=== PATIENT | female | born 1945 | race Caucasian/White ===

== ENCOUNTER 2016-10-03 10:16 | Day surgery (SDC) | payer BC ==
--- NOTE | 2016-09-25 12:20 | HP ---
Admitting History and Physical - Primary Care Physician PCP: Selena Alfaro - Admission Chief Complaint: right nipple discharge History of Present Illness: Patient is a 72 yo female who presents with complaint of right spontaneous nipple discharge times one month. Right US was c/w right breast cyst versus focal ductal dilation. Mammogram was otherwise negative. Patient is now presenting for MDE. History Source: Patient Limitations to Obtaining History: No Limitations - Past Medical History Cardiovascular: Yes: HTN Gastrointestinal: Yes: GERD Musculoskeletal: Yes: Chronic low back pain, Other (sciatica) - Smoking History Smoking history: Current every day smoker Have you smoked in the past 12 months: Yes Aproximately how many cigarettes per day: 20 - Alcohol/Substance Use Hx Alcohol Use: No Home Medications - Allergies Allergies/Adverse Reactions: Allergies Allergy/AdvReac Type Severity Reaction Status Date / Time ibuprofen [From Advil] Allergy Severe ANAPHILACTIC Verified 05/28/13 09:25 SHOCK - Home Medications Home Medications: Ambulatory Orders Albuterol Sulfate Inhaler - [Ventolin HFA Inhaler -] 2 inh IH Q6H PRN #0 inh Amlodipine Besylate [Norvasc -] 10 mg PO DAILY #0 tablet 11/26/12 Enalapril Maleate [Vasotec -] 10 mg PO DAILY #0 tablet 11/26/12 Gabapentin [Neurontin -] 300 mg PO TID #0 capsule 11/26/12 Hydrochlorothiazide [Hctz -] 25 mg PO DAILY #0 tablet 11/26/12 Tramadol HCl [Ultram -] 50 mg PO Q6H PRN #0 tablet 11/26/12 Aspirin Coated [Ecotrin -] 81 mg PO DAILY 05/28/13 Calcium Carbonate/Vitamin D3 [Calcium 600-Vit D3 200 Tablet] 1 each PO DAILY Omeprazole [Prilosec (RX)] 20 mg PO DAILY 05/28/13 Tizanidine HCl [Zanaflex] 4 mg PO DAILY 05/28/13 Vit E/Vit E Mix/Tocotr/Hc122 [Advanced High Gamma E Softgel] 600 units PO DAILY 05/28/13 Family Disease History - Family Disease History Family Disease History: CA: Mother (ovarian cancer ) Review of Systems - Review of Systems Constitutional: reports: No Symptoms Cardiovascular: reports: No Symptoms Respiratory: reports: No Symptoms Breasts: reports: See HPI Physical Examination Constitutional: Yes: Well Nourished Breast(s): Yes: Right (Right clear nipple discharge noted. Left without discharge noted. No other palpable masses or adenopathy noted bilaterally.) Problem List - Problems (1) Discharge from right nipple Assessment/Plan: Right breast MDE Code(s): N64.52 - NIPPLE DISCHARGE
[2016-09-30 16:55] VITALS: BMI 33.0
[2016-10-03] MEDS ORDERED: MIDAZOLAM HCL 2 MG/2 ML SINGLE DOSE VIAL ONE (12:27)
[2016-10-03] MEDS ORDERED: LIDOCAINE HCL 1%, 10 MG/ML (20ML VIAL) ONE (12:43)
[2016-10-03] MEDS ORDERED: LIDOCAINE HCL 1%, 10 MG/ML (20ML VIAL) IJ ONE (12:52)
[2016-10-03] MEDS ORDERED: BUPIVACAINE HCL/PF 0.5% (5MG/ML) 10 ML VIAL ONE (13:12)
[2016-10-03] MEDS ORDERED: BUPIVACAINE HCL/PF 0.5% (5MG/ML) 10 ML VIAL IJ ONE (13:13)
[2016-10-03] MEDS ORDERED: ONDANSETRON 4 MG/2 ML VIAL IVPB PRN (14:02)
[2016-10-03] MEDS ORDERED: oxyCODONE HCL 5 MG TABLET PO ONE (14:12)
[2016-10-03] MEDS ORDERED: DEXTROSE 5%-0.45% SALINE 1,000 ML IV SCH (14:15)
[2016-10-03 15:41] VITALS: BP 125/57; PULSE 92; TEMP 98.9
--- NOTE | 2016-10-08 15:39 | PATH ---
Surgical Pathology Report Patient Name: CHARLES HAYES [facility]. Rec. #: [id number] /Age/Gender: 1945 (Age: 71) / F Account: [id number] Location: [facility] Taken: 10/03/2016 Received: 10/03/2016 Reported: 10/08/2016 Physicians: Selena Alfaro M.D. Specimen(s) Received RIGHT BREAST MAJOR DUCT Clinical History Right breast major duct excision Final Diagnosis BREAST, RIGHT, MAJOR DUCT, EXCISION: BENIGN BREAST TISSUE SHOWING INTRADUCTAL PAPILLOMA WITH EPITHELIAL HYPERPLASIA, APOCRINE METAPLASIA, SCLEROSIS AND ASSOCIATED CALCIFICATIONS. Electronically Signed India Grey M.D. Gross Description Received in formalin, labeled "right breast major duct," is a 4.5 x 3.7 x 1.7 cm. berry-yellow, irregular, portion of fibroadipose tissue. There is a short suture marking the superior aspect and a long suture marking the lateral aspect, per the surgeon. There is no skin present. The specimen is inked as follows: superior and lateral blue; inferior green; medial yellow; anterior red; deep black. The specimen is serially sectioned from lateral to medial. Sectioning reveals foci of white fibrous tissue. No definitive masses are identified. The specimen is entirely and sequentially submitted in 9 cassettes with the medial margin in cassette 1 and the lateral margin in cassette 9. Time to formalin fixation: 2 minutes Total formalin fixation time: Approximately 29 hours. 10/04/2016 [facility]10/04/2016
--- NOTE | 2016-10-19 13:06 | OP ---
DATE OF OPERATION: 10/03/2016 DATE OF DICTATION: 10/18/2016 PREOPERATIVE DIAGNOSIS: Nipple discharge. POSTOPERATIVE DIAGNOSIS: Nipple discharge. PROCEDURE: Right major duct excision. SURGEON: Serg Alfaro MD ANESTHESIA: General. ANESTHESIOLOGIST: . SPECIMEN: Right breast tissue INDICATION FOR PROCEDURE: The patient is a 71-year-old woman with spontaneous right nipple discharge. Diagnostic workup was negative, but the discharge persisted and she was recommended major duct excision. The procedure, risks, and complications were discussed with her prior to surgery. PROCEDURE: The patient was identified in the holding area. An informed consent was obtained. The right breast was identified with a marker. She was taken to the operating room and placed on the operating table in the supine position. General anesthesia was initiated. The right breast was prepped and draped in the usual fashion. A timeout was performed. An incision was made at the areolar border using a scalpel. The incision was deepened using electrocautery. Electrocautery was used to separate the areola and the nipple from the underlying breast tissue. Care was taken not to damage the overlying skin. Electrocautery was used to remove a disk of tissue underneath the areola for a depth of about 1 cm. The specimen was removed and labeled with silk sutures. The specimen was placed in formalin and sent to Pathology. The wound was irrigated and hemostasis was ensured. The skin was infiltrated with 0.5% Marcaine. The deep tissue was closed with interrupted sutures of 3-0 Vicryl. The dermis was closed with interrupted sutures of 3-0 Vicryl. The skin was closed with a running subcuticular closure of 4-0 Monocryl. The wound was cleaned and a sterile dressing was applied. The patient tolerated the procedure well. All sponge, lap, and instrument counts were correct at the end of the procedure. She was taken to the recovery area in satisfactory condition. SERG ALFARO M.D. [id number] MTDD
== END 2016-10-03 15:00 | disposition home or self-care (01) ==
LOC: FASU 10:16
PROVIDERS: ATTEND Surgery
PROC: 0HBT0ZX Excision of Right Breast, Open Approach, Diagnostic (ICD-10-PCS; principal; 2016-10-03 12:54)
DX: N64.52 Nipple discharge (principal); D24.1 Benign neoplasm of right breast; N64.89 Other specified disorders of breast; I10 Essential (primary) hypertension; K21.9 Gastro-esophageal reflux disease without esophagitis; M54.40 Lumbago with sciatica, unspecified side; G89.29 Other chronic pain
CPT/HCPCS: 88307-TC

== ENCOUNTER 2019-01-03 12:16 | Emergency (ER) | payer BC ==
[2019-01-03 12:30] VITALS: BP 106/56; PULSE 84; TEMP 98.3; BMI 30.6
--- NOTE | 2019-01-03 13:32 | PDOC ---
History of Present Illness - General Chief Complaint: Pain Stated Complaint: NECK PAIN Time Seen by Provider: 01/03/19 12:44 History Source: Patient - History of Present Illness Timing/Duration: 1 week Past History - Past Medical History Allergies/Adverse Reactions: Allergies Allergy/AdvReac Type Severity Reaction Status Date / Time ibuprofen [From Advil] Allergy Severe ANAPHYLACTIC Verified 01/03/19 12:30 SHOCK Home Medications: Ambulatory Orders Albuterol Sulfate Inhaler - [Ventolin HFA Inhaler -] 2 inh IH Q6H PRN #0 inh Amlodipine Besylate [Norvasc -] 10 mg PO DAILY #0 tablet 11/26/12 Hydrochlorothiazide [Hctz -] 25 mg PO DAILY #0 tablet 11/26/12 Calcium Carbonate/Vitamin D3 [Calcium 600-Vit D3 200 Tablet] 1 each PO DAILY traMADol HCL [Ultram -] 50 mg PO DAILY PRN 09/30/16 Aspirin [ASA -] 81 mg PO HS 12/24/18 Atorvastatin Ca [Lipitor] 20 mg PO HS 12/24/18 Bupropion HCl [Bupropion HCl Sr] 150 mg PO DAILY 12/24/18 Enalapril Maleate [Vasotec -] 10 mg PO HS 12/24/18 Gabapentin [Neurontin -] 100 mg PO DAILY 12/24/18 Cyclobenzaprine HCl [Flexeril -] 10 mg PO TID #9 tablet 01/03/19 Anemia: No Asthma: No Cancer: No Cardiac Disorders: No CVA: No COPD: Yes CHF: No Dementia: No Diabetes: No GI Disorders: Yes (HX Acid Reflux) Disorders: No HTN: Yes Hypercholesterolemia: No Liver Disease: No Seizures: No Thyroid Disease: No Other medical history: chronic back pain - Surgical History Abdominal Surgery: Yes Appendectomy: Yes Cardiac Surgery: No Cholecystectomy: No Lung Surgery: No Neurologic Surgery: No Orthopedic Surgery: Yes (REMOVAL BENIGN NODULE FROM LT HAND) - Suicide/Smoking/Psychosocial Hx Smoking Status: Yes Smoking History: Never smoked Have you smoked in the past 12 months: Yes Number of Cigarettes Smoked Daily: 20 If you are a former smoker, when did you quit?: 7 MONTHS AGO 'Breaking Loose' booklet given: 12/25/18 Hx Alcohol Use: No Drug/Substance Use Hx: No Substance Use Type: None Hx Substance Use Treatment: No Review of Systems - Review of Systems Constitutional: No: Chills, Fever Musculoskeletal: Yes: Neck Pain. No: Back Pain Neurological: No: Headache, Numbness, Tingling, Weakness *Physical Exam - Vital Signs Last Vital Signs Temp Pulse Resp BP Pulse Ox 98.3 F 84 18 106/56 L 99 01/03/19 12:24 01/03/19 12:24 01/03/19 12:24 01/03/19 12:24 01/03/19 12:24 - Physical Exam General Appearance: Yes: Appropriately Dressed. No: Apparent Distress HEENT: positive: Normal Voice Neck: positive: Supple. negative: Tender, Rigid, Decreased range of motion, Lymphadenopathy (R), Lymphadenopathy (L) Integumentary: positive: Dry, Warm Neurologic: positive: Fully Oriented, Alert, Normal Mood/Affect, Motor Strength 5/5 Medical Decision Making - Medical Decision Making 01/03/19 13:23 73 yo F, h/o chronic lower back pain, s/p recent stimulation trial, here w/ L sided neck pain that pt awoke w/ 1 week ago, worse w/ ROM. Taking tramadol w/ some relief. No JORADN, dizziness, visual changes, focal weakness or sensory changes see exam M/l MSK neck pain No red flags at this time Dc w/ pain control and PMD f/u *DC/Admit/Observation/Transfer Diagnosis at time of Disposition: Neck pain - Discharge Dispostion Disposition: HOME Condition at time of disposition: Good - Prescriptions Prescriptions: Cyclobenzaprine HCl [Flexeril -] 10 mg PO TID #9 tablet - Referrals - Patient Instructions Printed Discharge Instructions: DI for Neck Pain Additional Instructions: Take medication as directed and follow up with your PMD if pain persists - Post Discharge Activity
== END 2019-01-03 13:23 | disposition home or self-care (01) ==
LOC: JERFT 12:16
DX: M54.2 Cervicalgia (principal); M54.5 Low back pain; G89.29 Other chronic pain; I10 Essential (primary) hypertension; J44.9 Chronic obstructive pulmonary disease, unspecified
CPT/HCPCS: 99282-25

== ENCOUNTER 2021-05-22 05:32 | Day surgery (SDC) | payer BC ==
[2021-05-22 10:55] VITALS: TEMP 97.5; BMI 28.5
[2021-05-22 12:47] VITALS: BP 115/41; PULSE 79
== END 2021-05-22 12:43 | disposition home or self-care (01) ==
LOC: JASU-ENDO 05:32
PROVIDERS: ATTEND Internal Medicine Gastroenterology
PROC: 0DB68ZX Excision of Stomach, Via Natural or Artificial Opening Endoscopic, Diagnostic (ICD-10-PCS; 2021-05-22)
PROC: 0DB38ZX Excision of Lower Esophagus, Via Natural or Artificial Opening Endoscopic, Diagnostic (ICD-10-PCS; principal; 2021-05-22 10:45)
DX: K29.50 Unspecified chronic gastritis without bleeding (principal); K29.80 Duodenitis without bleeding; K44.9 Diaphragmatic hernia without obstruction or gangrene; K25.9 Gastric ulcer, unspecified as acute or chronic, without hemorrhage or perforation; K31.9 Disease of stomach and duodenum, unspecified; R10.9 Unspecified abdominal pain; R93.3 Abnormal findings on diagnostic imaging of other parts of digestive tract; R63.4 Abnormal weight loss
CPT/HCPCS: 88305-TC; 88342-TC

== ENCOUNTER 2021-05-24 05:04 | Day surgery (SDC) | payer BC ==
[2021-05-22 13:12] VITALS: BMI 28.5
[2021-05-24 11:12] VITALS: BP 118/59; PULSE 69
[2021-05-24 13:00] VITALS: TEMP 97.1
== END 2021-05-24 10:55 | disposition home or self-care (01) ==
LOC: JASU-ENDO 05:04
PROVIDERS: ATTEND Internal Medicine Gastroenterology
PROC: 0DJD8ZZ Inspection of Lower Intestinal Tract, Via Natural or Artificial Opening Endoscopic (ICD-10-PCS; principal; 2021-05-24 08:45)
DX: R19.5 Other fecal abnormalities (principal); K64.8 Other hemorrhoids; K62.89 Other specified diseases of anus and rectum

== ENCOUNTER 2021-05-31 23:01 | Emergency (ER) | payer BC ==
[2021-05-31 23:15] VITALS: BMI 31.3
[2021-06-01] MEDS ORDERED: ACETAMINOPHEN 1000 MG/100 ML VIAL IVPB ONE (00:11)
[2021-06-01 00:16] LABS: BASO % 0.7 % (0-2.0); EOS % 2.1 % (0-4.5); HEMATOCRIT 34.8 % (32.4-45.2); HEMOGLOBIN 11.9 GM/dL (10.7-15.3); MCH 33.2 pg (25.7-33.7); MCHC 34.1 g/dl (32.0-36.0); MEAN CELL VOLUME 97.3 fl (80-96); MEAN PLT VOLUME 7.4 fl (7.5-11.1); MONO % 9.6 % (3.8-10.2); NEUT % 71.6 % (42.8-82.8); PLATELET COUNT 314 10^3/uL (134-434); RBC 3.58 M/mm3 (3.60-5.2); RDW 13.3 % (11.6-15.6); WHITE BLOOD COUNT 8.7 K/mm3 (4.0-10.0)
[2021-06-01] MEDS ORDERED: ACETAMINOPHEN INJECTION 100 ML IVPB ONE (00:20)
[2021-06-01 00:23] LABS: INR 1.03 (0.83-1.09)
[2021-06-01 00:26] LABS: ACTIVATED PTT 27.6 SECONDS (25.2-36.5)
[2021-06-01 00:34] LABS: CHLORIDE 106 mmol/L (98-107); SODIUM 135 mmol/L (136-145)
[2021-06-01 00:38] LABS: CALCIUM 9.1 mg/dL (8.5-10.1)
[2021-06-01 00:39] LABS: ALBUMIN 3.2 g/dl (3.4-5.0); ANION GAP 8 MMOL/L (8-16); BLOOD UREA NITROGEN 18.7 mg/dL (7-18); CO2 22 mmol/L (21-32); GLUCOSE,RANDOM 90 mg/dL (74-106)
[2021-06-01 00:42] LABS: SGOT/AST 12 U/L (15-37); SGPT/ALT 16 U/L (13-61)
[2021-06-01 00:43] LABS: BILIRUBIN,TOTAL 0.3 mg/dL (0.2-1); LDH 160 U/L (84-246)
[2021-06-01 00:44] LABS: TOT PROT 6.8 g/dl (6.4-8.2)
[2021-06-01 00:45] LABS: ALK PHOS 109 U/L (45-117)
[2021-06-01 05:06] VITALS: BP 113/54; PULSE 76; TEMP 98.1
== END 2021-06-01 05:06 | disposition home or self-care (01) ==
LOC: JER 23:01
PROC: 3E033GC Introduction of Other Therapeutic Substance into Peripheral Vein, Percutaneous Approach (ICD-10-PCS; principal; 2021-05-31)
DX: R06.09 Other forms of dyspnea (principal)
CPT/HCPCS: 36415; 71046-TC-FY; 80053; 82550; 82728; 83615; 84484; 85025; 85610; 85730; 86140; 87804; 87807; 93005; 93010; 99285-25; C9803; J0131; U0003; U0005

== ENCOUNTER 2021-08-02 04:52 | Day surgery (SDC) | payer BC ==
[2021-07-30 15:59] VITALS: BMI 31.5
[2021-08-02 08:36] VITALS: TEMP 97.7
[2021-08-02 10:06] VITALS: BP 122/49; PULSE 63
== END 2021-08-02 09:30 | disposition home or self-care (01) ==
LOC: JASU-ENDO 04:52
PROVIDERS: ATTEND Internal Medicine Gastroenterology
PROC: 0DB68ZX Excision of Stomach, Via Natural or Artificial Opening Endoscopic, Diagnostic (ICD-10-PCS; 2021-08-02)
PROC: 0DB48ZX Excision of Esophagogastric Junction, Via Natural or Artificial Opening Endoscopic, Diagnostic (ICD-10-PCS; principal; 2021-08-02 09:00)
DX: K29.50 Unspecified chronic gastritis without bleeding (principal); K44.9 Diaphragmatic hernia without obstruction or gangrene; K21.00 Gastro-esophageal reflux disease with esophagitis, without bleeding
CPT/HCPCS: 88305-TC; 88342-TC

== ENCOUNTER 2022-08-05 12:48 | Inpatient (IN) | payer BC ==
[2022-08-05 13:04] VITALS: BMI 31.3
[2022-08-05] MEDS ORDERED: methylPREDNISolone NA SUCC 125 MG/2 ML VIAL IVPB ONE ×2 (13:23→13:27)
[2022-08-05 13:38] LABS: VENOUS BASE EXCESS 0.2 mmol/L (-2-2); VENOUS O2 SATURATION 77.6 % (70-80); VENOUS PH 7.336 (7.310-7.410)
[2022-08-05 13:40] LABS: BASO % 0.3 % (0-2.0); EOS % 0.8 % (0-4.5); HEMOGLOBIN 12.2 GM/dL (10.7-15.3); LYMPH % 7.1 % (8-40); MCH 31.9 pg (25.7-33.7); MCHC 33.8 g/dl (32.0-36.0); MEAN CELL VOLUME 94.3 fl (80-96); MEAN PLT VOLUME 7.7 fl (7.5-11.1); MONO % 7.9 % (3.8-10.2); NEUT % 83.9 % (42.8-82.8); PLATELET COUNT 306 10^3/uL (134-434); RBC 3.82 M/mm3 (3.60-5.2); WHITE BLOOD COUNT 7.9 K/mm3 (4.0-10.0)
[2022-08-05] MEDS ORDERED: methylPREDNISolone NA SUCC 125 MG/2 ML VIAL ONE (13:42)
[2022-08-05] MEDS ORDERED: ALBUTEROL SO4 2.5/IPRATROPIUM 0.5 INH SOL 3 ML VIAL.NEB. NEB SCH ×3 (13:46→16:00)
[2022-08-05 14:03] LABS: CALCIUM 9.7 mg/dL (8.5-10.1)
[2022-08-05 14:04] LABS: ALBUMIN 4.3 g/dl (3.4-5.0); BLOOD UREA NITROGEN 23.9 mg/dL (7-18)
[2022-08-05 14:07] LABS: CREATININE 1.1 mg/dL (0.55-1.3)
[2022-08-05 14:08] LABS: BILIRUBIN,TOTAL 0.4 mg/dL (0.2-1); TOT PROT 7.3 g/dl (6.4-8.2)
[2022-08-05] MEDS ORDERED: ALBUTEROL SO4 2.5/IPRATROPIUM 0.5 INH SOL 3 ML VIAL.NEB. NEB ONE ×3 (14:09→19:59)
[2022-08-05] MEDS ORDERED: LACTATED RINGERS SOLUTION 1000 ML INFUS.BAG IV ONE (14:24)
[2022-08-05] MEDS ORDERED: CEFTRIAXONE 1,000 MG in DEXTROSE 5%-WATER - 50 ML IVPB ONE (15:52)
[2022-08-05] MEDS ORDERED: AZITHROMYCIN IVPB 500 MG in DEXTROSE 5%-WATER - 250 ML IVPB ONE (15:52)
[2022-08-05] MEDS ORDERED: CEFTRIAXONE 1 GM/50 ML BAG ONE (16:17)
[2022-08-05] MEDS ORDERED: AZITHROMYCIN IVPB 500 MG/250 ML BAG IVPB ONE (16:17)
[2022-08-05] MEDS: ALBUTEROL SO4 2.5/IPRATROPIUM 0.5 INH SOL 3 ML VIAL.NEB. NEB PRN (19:45)
[2022-08-05] MEDS ORDERED: ACETAMINOPHEN 325 MG TABLET (FP) ONE (20:19)
[2022-08-05] MEDS: methylPREDNISolone NA SUCC 40 MG/1 ML VIAL IVPUSH SCH (21:00)
[2022-08-05] MEDS ORDERED: ALBUTEROL SO4 0.083% IH SOL 2.5 MG/3 ML VIAL.NEB. NEB PRN (21:30)
[2022-08-05] MEDS: ASPIRIN 81 MG CHEWABLE TABLETS PO SCH (21:39)
[2022-08-05] MEDS: ATORVASTATIN CA 10 MG TABLET (FP) PO SCH ×2 (21:39→21:47)
[2022-08-05] MEDS: BACLOFEN 10 MG TABLET (FP) PO SCH ×2 (21:39→21:47)
[2022-08-05] MEDS: GABAPENTIN 100 MG CAPSULE PO SCH ×2 (21:39→21:47)
[2022-08-05] MEDS: HEPARIN NA (PORCINE) 5,000 UNITS/ML 1ML VIAL SQ SCH (21:39)
[2022-08-05] MEDS ORDERED: ALBUTEROL SO4 HFA INHALER IH PRN (22:00)
[2022-08-06] MEDS: methylPREDNISolone NA SUCC 40 MG/1 ML VIAL IVPUSH SCH ×4 (02:09→21:15)
[2022-08-06] MEDS: ACETAMINOPHEN 325 MG TABLET (FP) PO PRN ×2 (03:00→14:22)
[2022-08-06] MEDS: GABAPENTIN 100 MG CAPSULE PO SCH ×3 (05:30→21:14)
[2022-08-06] MEDS: ENALAPRIL MALEATE 10 MG TABLET PO SCH (10:11)
[2022-08-06] MEDS: FAMOTIDINE 20 MG TABLET PO SCH (10:11)
[2022-08-06] MEDS: FLUTICASONE/UMECLIDIN/VILANTER(100-62.5-25 TRELEGY ELLIPTA) INAHLER IH SCH (10:11)
[2022-08-06] MEDS: amLODIPine BESYLATE 10 MG TABLET (FP) PO SCH (10:11)
[2022-08-06] MEDS: BACLOFEN 10 MG TABLET (FP) PO SCH ×2 (10:11→21:14)
[2022-08-06] MEDS: HEPARIN NA (PORCINE) 5,000 UNITS/ML 1ML VIAL SQ SCH ×2 (10:11→21:14)
[2022-08-06] MEDS ORDERED: CEFTRIAXONE 1,000 MG in DEXTROSE 5%-WATER - 50 ML IVPB SCH (11:30)
[2022-08-06] MEDS ORDERED: ALBUTEROL SO4 2.5/IPRATROPIUM 0.5 INH SOL 3 ML VIAL.NEB. NEB SCH (11:30)
[2022-08-06] MEDS ORDERED: PANTOPRAZOLE SODIUM 40 MG VIAL IVPUSH SCH (11:30)
[2022-08-06] MEDS: CEFTRIAXONE 1 GM in DEXTROSE 5%-WATER 100 ML IVPB SCH (12:05)
[2022-08-06] MEDS: AZITHROMYCIN IVPB 500 MG/250 ML BAG IVPB SCH (12:06)
[2022-08-06] MEDS: ALBUTEROL SO4 2.5/IPRATROPIUM 0.5 INH SOL 3 ML VIAL.NEB. NEB PRN (12:50)
[2022-08-06] MEDS: ALBUTEROL SO4 2.5/IPRATROPIUM 0.5 INH SOL 3 ML VIAL.NEB. NEB SCH ×2 (15:25→20:05)
[2022-08-06] MEDS: ASPIRIN 81 MG CHEWABLE TABLETS PO SCH (21:14)
[2022-08-06] MEDS: ATORVASTATIN CA 10 MG TABLET (FP) PO SCH (21:14)
[2022-08-07] MEDS: methylPREDNISolone NA SUCC 40 MG/1 ML VIAL IVPUSH SCH ×4 (02:06→21:26)
[2022-08-07] MEDS: PANTOPRAZOLE SODIUM 40 MG VIAL IVPUSH SCH (06:08)
[2022-08-07] MEDS: GABAPENTIN 100 MG CAPSULE PO SCH ×3 (06:08→21:25)
[2022-08-07] MEDS: ALBUTEROL SO4 2.5/IPRATROPIUM 0.5 INH SOL 3 ML VIAL.NEB. NEB SCH ×4 (08:30→21:23)
[2022-08-07] MEDS: HEPARIN NA (PORCINE) 5,000 UNITS/ML 1ML VIAL SQ SCH ×2 (09:42→21:26)
[2022-08-07] MEDS: FAMOTIDINE 20 MG TABLET PO SCH (09:42)
[2022-08-07] MEDS: BACLOFEN 10 MG TABLET (FP) PO SCH ×2 (09:42→21:26)
[2022-08-07] MEDS: ENALAPRIL MALEATE 10 MG TABLET PO SCH (09:42)
[2022-08-07] MEDS: amLODIPine BESYLATE 10 MG TABLET (FP) PO SCH (09:42)
[2022-08-07] MEDS: FLUTICASONE/UMECLIDIN/VILANTER(100-62.5-25 TRELEGY ELLIPTA) INAHLER IH SCH (09:42)
[2022-08-07] MEDS: CEFTRIAXONE 1 GM in DEXTROSE 5%-WATER 100 ML IVPB SCH (09:42)
[2022-08-07 09:45] LABS: HEMOGLOBIN 11.4 GM/dL (10.7-15.3); MCHC 34.5 g/dl (32.0-36.0); MEAN CELL VOLUME 95.5 fl (80-96); MEAN PLT VOLUME 7.6 fl (7.5-11.1); PLATELET COUNT 277 10^3/uL (134-434); RBC 3.46 M/mm3 (3.60-5.2); RDW 14.1 % (11.6-15.6); WHITE BLOOD COUNT 14.4 K/mm3 (4.0-10.0)
[2022-08-07 10:02] LABS: CALCIUM 9.8 mg/dL (8.5-10.1)
[2022-08-07 10:03] LABS: BLOOD UREA NITROGEN 24.1 mg/dL (7-18)
[2022-08-07 10:06] LABS: CREATININE 0.9 mg/dL (0.55-1.3)
[2022-08-07] MEDS: AZITHROMYCIN IVPB 500 MG/250 ML BAG IVPB SCH (10:56)
[2022-08-07 11:14] LABS: ANISOCYTOSIS 0; MACROCYTOSIS 0
[2022-08-07] MEDS: ASPIRIN 81 MG CHEWABLE TABLETS PO SCH (21:25)
[2022-08-07] MEDS: ATORVASTATIN CA 10 MG TABLET (FP) PO SCH (21:26)
[2022-08-08] MEDS: methylPREDNISolone NA SUCC 40 MG/1 ML VIAL IVPUSH SCH ×3 (03:04→18:08)
[2022-08-08] MEDS: GABAPENTIN 100 MG CAPSULE PO SCH ×3 (05:32→22:41)
[2022-08-08] MEDS: PANTOPRAZOLE SODIUM 40 MG VIAL IVPUSH SCH (05:32)
[2022-08-08] MEDS: ALBUTEROL SO4 2.5/IPRATROPIUM 0.5 INH SOL 3 ML VIAL.NEB. NEB SCH ×4 (07:59→23:23)
[2022-08-08] MEDS: CEFTRIAXONE 1 GM in DEXTROSE 5%-WATER 100 ML IVPB SCH (09:08)
[2022-08-08] MEDS: amLODIPine BESYLATE 10 MG TABLET (FP) PO SCH (09:10)
[2022-08-08] MEDS: ENALAPRIL MALEATE 10 MG TABLET PO SCH (09:10)
[2022-08-08] MEDS: FAMOTIDINE 20 MG TABLET PO SCH (09:10)
[2022-08-08] MEDS: BACLOFEN 10 MG TABLET (FP) PO SCH ×2 (09:10→22:41)
[2022-08-08] MEDS: AZITHROMYCIN IVPB 500 MG/250 ML BAG IVPB SCH (09:11)
[2022-08-08] MEDS: HEPARIN NA (PORCINE) 5,000 UNITS/ML 1ML VIAL SQ SCH ×2 (09:11→22:41)
[2022-08-08] MEDS: FLUTICASONE/UMECLIDIN/VILANTER(200-62.5-25 TRELEGY ELLIPTA) INAHLER IH SCH (09:18)
[2022-08-08] MEDS: ASPIRIN 81 MG CHEWABLE TABLETS PO SCH (22:41)
[2022-08-08] MEDS: ATORVASTATIN CA 10 MG TABLET (FP) PO SCH (22:41)
[2022-08-09] MEDS: methylPREDNISolone NA SUCC 40 MG/1 ML VIAL IVPUSH SCH ×3 (01:17→17:26)
[2022-08-09] MEDS: PANTOPRAZOLE SODIUM 40 MG VIAL IVPUSH SCH (05:27)
[2022-08-09] MEDS: GABAPENTIN 100 MG CAPSULE PO SCH ×3 (05:27→21:46)
[2022-08-09] MEDS: ALBUTEROL SO4 2.5/IPRATROPIUM 0.5 INH SOL 3 ML VIAL.NEB. NEB SCH ×4 (07:40→20:20)
[2022-08-09] MEDS: CEFTRIAXONE 1 GM in DEXTROSE 5%-WATER 100 ML IVPB SCH (10:20)
[2022-08-09] MEDS: BACLOFEN 10 MG TABLET (FP) PO SCH ×2 (10:21→21:47)
[2022-08-09] MEDS: FAMOTIDINE 20 MG TABLET PO SCH (10:21)
[2022-08-09] MEDS: AZITHROMYCIN 250 MG TABLET PO SCH (10:21)
[2022-08-09] MEDS: amLODIPine BESYLATE 10 MG TABLET (FP) PO SCH (10:21)
[2022-08-09] MEDS: ENALAPRIL MALEATE 10 MG TABLET PO SCH (10:21)
[2022-08-09] MEDS: HEPARIN NA (PORCINE) 5,000 UNITS/ML 1ML VIAL SQ SCH ×2 (10:21→21:47)
[2022-08-09] MEDS: FLUTICASONE/UMECLIDIN/VILANTER(200-62.5-25 TRELEGY ELLIPTA) INAHLER IH SCH (10:22)
[2022-08-09] MEDS: ATORVASTATIN CA 10 MG TABLET (FP) PO SCH (21:46)
[2022-08-09] MEDS: ASPIRIN 81 MG CHEWABLE TABLETS PO SCH (21:46)
[2022-08-10] MEDS: methylPREDNISolone NA SUCC 40 MG/1 ML VIAL IVPUSH SCH ×4 (02:50→17:56)
[2022-08-10] MEDS: GABAPENTIN 100 MG CAPSULE PO SCH ×3 (05:31→23:03)
[2022-08-10] MEDS: PANTOPRAZOLE SODIUM 40 MG VIAL IVPUSH SCH (05:32)
[2022-08-10] MEDS: ALBUTEROL SO4 2.5/IPRATROPIUM 0.5 INH SOL 3 ML VIAL.NEB. NEB SCH ×4 (09:50→21:25)
[2022-08-10] MEDS: CEFTRIAXONE 1 GM in DEXTROSE 5%-WATER 100 ML IVPB SCH (10:24)
[2022-08-10] MEDS: ENALAPRIL MALEATE 10 MG TABLET PO SCH (10:25)
[2022-08-10] MEDS: FAMOTIDINE 20 MG TABLET PO SCH (10:25)
[2022-08-10] MEDS: FLUTICASONE/UMECLIDIN/VILANTER(200-62.5-25 TRELEGY ELLIPTA) INAHLER IH SCH (10:25)
[2022-08-10] MEDS: HEPARIN NA (PORCINE) 5,000 UNITS/ML 1ML VIAL SQ SCH ×2 (10:25→23:00)
[2022-08-10] MEDS: BACLOFEN 10 MG TABLET (FP) PO SCH ×2 (10:25→23:03)
[2022-08-10] MEDS: AZITHROMYCIN 250 MG TABLET PO SCH (10:25)
[2022-08-10] MEDS: amLODIPine BESYLATE 10 MG TABLET (FP) PO SCH (10:25)
[2022-08-10] MEDS: ACETAMINOPHEN 325 MG TABLET (FP) PO PRN (10:55)
[2022-08-10] MEDS: dilTIAZem HCL 25 MG/5 ML - 5 ML VIAL IVPUSH STA ×2 (21:30→23:00)
[2022-08-10] MEDS ORDERED: dilTIAZem HCL 25 MG/5 ML - 5 ML VIAL IVPUSH STA (22:01)
[2022-08-10] MEDS ORDERED: dilTIAZem HCL 50 MG/10 ML - 10 ML VIAL IVPUSH STA (22:15)
[2022-08-10] MEDS: ATORVASTATIN CA 10 MG TABLET (FP) PO SCH (22:52)
[2022-08-10] MEDS: ENOXAPARIN NA (PORCINE) 80 MG/0.8 ML DISP.SYRIN SQ SCH (23:03)
[2022-08-10] MEDS: ASPIRIN 81 MG CHEWABLE TABLETS PO SCH (23:03)
[2022-08-11 00:21] LABS: CALCIUM 9.2 mg/dL (8.5-10.1)
[2022-08-11 00:22] LABS: BLOOD UREA NITROGEN 26.5 mg/dL (7-18); MAGNESIUM 1.8 mg/dL (1.8-2.4)
[2022-08-11 00:25] LABS: CREATININE 0.8 mg/dL (0.55-1.3)
[2022-08-11] MEDS: methylPREDNISolone NA SUCC 40 MG/1 ML VIAL IVPUSH SCH ×3 (01:12→18:35)
[2022-08-11] MEDS: LEVALBUTEROL HCL 0.31 MG/3 ML VIAL.NEB IH PRN ×2 (03:23→13:56)
[2022-08-11] MEDS ORDERED: LORazepam 2 MG/ML SDV VIAL IVPUSH ONE (03:32)
[2022-08-11] MEDS: GABAPENTIN 100 MG CAPSULE PO SCH ×3 (05:59→22:14)
[2022-08-11] MEDS: PANTOPRAZOLE SODIUM 40 MG VIAL IVPUSH SCH (05:59)
[2022-08-11] MEDS: CEFTRIAXONE 1 GM in DEXTROSE 5%-WATER 100 ML IVPB SCH (09:54)
[2022-08-11] MEDS: ENOXAPARIN NA (PORCINE) 80 MG/0.8 ML DISP.SYRIN SQ SCH ×2 (09:56→22:15)
[2022-08-11] MEDS: AZITHROMYCIN 250 MG TABLET PO SCH (09:56)
[2022-08-11] MEDS: FAMOTIDINE 20 MG TABLET PO SCH (09:56)
[2022-08-11] MEDS: BACLOFEN 10 MG TABLET (FP) PO SCH ×2 (09:57→22:14)
[2022-08-11] MEDS: FLUTICASONE/UMECLIDIN/VILANTER(200-62.5-25 TRELEGY ELLIPTA) INAHLER IH SCH (11:00)
[2022-08-11] MEDS ORDERED: dilTIAZem HCL 60 MG TABLET PO ONE (16:15)
[2022-08-11] MEDS: dilTIAZem HCL 60 MG TABLET PO SCH ×2 (18:35→23:26)
[2022-08-11] MEDS: ATORVASTATIN CA 10 MG TABLET (FP) PO SCH (22:14)
[2022-08-11] MEDS: guaiFENesin 200 MG/10 ML 10 ML UNIT-DOSE CUPS PO PRN (22:16)
[2022-08-12] MEDS: methylPREDNISolone NA SUCC 40 MG/1 ML VIAL IVPUSH SCH ×3 (01:09→17:56)
[2022-08-12] MEDS: PANTOPRAZOLE SODIUM 40 MG VIAL IVPUSH SCH (05:42)
[2022-08-12] MEDS: dilTIAZem HCL 60 MG TABLET PO SCH ×4 (05:42→23:45)
[2022-08-12] MEDS: GABAPENTIN 100 MG CAPSULE PO SCH ×3 (05:42→21:33)
[2022-08-12] MEDS: ENOXAPARIN NA (PORCINE) 80 MG/0.8 ML DISP.SYRIN SQ SCH ×2 (09:55→21:34)
[2022-08-12] MEDS: CEFTRIAXONE 1 GM in DEXTROSE 5%-WATER 100 ML IVPB SCH (09:55)
[2022-08-12] MEDS: FAMOTIDINE 20 MG TABLET PO SCH (09:56)
[2022-08-12] MEDS: ACETAMINOPHEN 325 MG TABLET (FP) PO PRN (09:56)
[2022-08-12] MEDS: AZITHROMYCIN 250 MG TABLET PO SCH (09:57)
[2022-08-12] MEDS: BACLOFEN 10 MG TABLET (FP) PO SCH ×2 (09:57→21:33)
[2022-08-12] MEDS: FLUTICASONE/UMECLIDIN/VILANTER(200-62.5-25 TRELEGY ELLIPTA) INAHLER IH SCH (10:06)
[2022-08-12] MEDS: LEVALBUTEROL HCL 0.31 MG/3 ML VIAL.NEB IH PRN (15:51)
[2022-08-12] MEDS: guaiFENesin 200 MG/10 ML 10 ML UNIT-DOSE CUPS PO PRN (19:54)
[2022-08-12] MEDS: ATORVASTATIN CA 10 MG TABLET (FP) PO SCH (21:33)
[2022-08-13] MEDS: methylPREDNISolone NA SUCC 40 MG/1 ML VIAL IVPUSH SCH ×3 (01:18→17:08)
[2022-08-13] MEDS: GABAPENTIN 100 MG CAPSULE PO SCH ×3 (06:15→21:17)
[2022-08-13] MEDS: guaiFENesin 200 MG/10 ML 10 ML UNIT-DOSE CUPS PO PRN ×2 (06:15→21:17)
[2022-08-13] MEDS: dilTIAZem HCL 60 MG TABLET PO SCH (06:15)
[2022-08-13] MEDS: PANTOPRAZOLE SODIUM 40 MG VIAL IVPUSH SCH (06:16)
[2022-08-13] MEDS ORDERED: LISINOPRIL 5 MG TABLET PO ONE (10:00)
[2022-08-13] MEDS: BACLOFEN 10 MG TABLET (FP) PO SCH ×2 (10:24→21:17)
[2022-08-13] MEDS: AZITHROMYCIN 250 MG TABLET PO SCH (10:24)
[2022-08-13] MEDS: FAMOTIDINE 20 MG TABLET PO SCH (10:24)
[2022-08-13] MEDS: CEFTRIAXONE 1 GM in DEXTROSE 5%-WATER 100 ML IVPB SCH (10:24)
[2022-08-13] MEDS: APIXABAN 5 MG TABLET PO SCH ×2 (10:27→21:17)
[2022-08-13] MEDS: FLUTICASONE/UMECLIDIN/VILANTER(200-62.5-25 TRELEGY ELLIPTA) INAHLER IH SCH (10:28)
[2022-08-13] MEDS: ATORVASTATIN CA 10 MG TABLET (FP) PO SCH (21:17)
[2022-08-14] MEDS: methylPREDNISolone NA SUCC 40 MG/1 ML VIAL IVPUSH SCH ×3 (01:23→21:27)
[2022-08-14] MEDS: guaiFENesin 200 MG/10 ML 10 ML UNIT-DOSE CUPS PO PRN ×2 (02:30→21:27)
[2022-08-14] MEDS: LEVALBUTEROL HCL 0.31 MG/3 ML VIAL.NEB IH PRN ×2 (02:32→21:00)
[2022-08-14] MEDS: GABAPENTIN 100 MG CAPSULE PO SCH ×3 (06:01→21:24)
[2022-08-14] MEDS: PANTOPRAZOLE SODIUM 40 MG VIAL IVPUSH SCH (06:01)
[2022-08-14 08:13] LABS: HEMATOCRIT 40.9 % (32.4-45.2); HEMOGLOBIN 13.8 GM/dL (10.7-15.3); MCH 31.9 pg (25.7-33.7); MCHC 33.8 g/dl (32.0-36.0); MEAN CELL VOLUME 94.4 fl (80-96); MEAN PLT VOLUME 7.6 fl (7.5-11.1); PLATELET COUNT 339 10^3/uL (134-434); RBC 4.33 M/mm3 (3.60-5.2); WHITE BLOOD COUNT 13.3 K/mm3 (4.0-10.0)
[2022-08-14 08:28] LABS: ALBUMIN 3.4 g/dl (3.4-5.0); BLOOD UREA NITROGEN 31.2 mg/dL (7-18); CALCIUM 9.7 mg/dL (8.5-10.1)
[2022-08-14 08:32] LABS: CREATININE 0.7 mg/dL (0.55-1.3)
[2022-08-14 08:33] LABS: BILIRUBIN,TOTAL 0.6 mg/dL (0.2-1); TOT PROT 6.7 g/dl (6.4-8.2)
[2022-08-14] MEDS: FAMOTIDINE 20 MG TABLET PO SCH (09:02)
[2022-08-14] MEDS: BACLOFEN 10 MG TABLET (FP) PO SCH ×2 (09:02→21:24)
[2022-08-14] MEDS: AZITHROMYCIN 250 MG TABLET PO SCH (09:02)
[2022-08-14] MEDS: APIXABAN 5 MG TABLET PO SCH ×2 (09:02→21:24)
[2022-08-14] MEDS: FLUTICASONE/UMECLIDIN/VILANTER(200-62.5-25 TRELEGY ELLIPTA) INAHLER IH SCH (09:02)
[2022-08-14 09:24] LABS: ANISOCYTOSIS 0; HELMET CELLS 0; HOWELL-JOLLY BODIES 0; MACROCYTOSIS 0; OVALOCYTE 0; ROULEAU 0; SICKELED CELLS 0; TARGET CELLS 0; TEAR DROP CELLS 0; TOXIC GRANULATION 0
[2022-08-14] MEDS ORDERED: NICOTINE POLACRILEX 4 MG GUM BUC PRN (12:20)
[2022-08-14] MEDS: LIDOCAINE 5% TOPICAL PATCH TP SCH (14:44)
[2022-08-14] MEDS: CYANOCOBALAMIN 1,000 MCG TABLET (FP) PO SCH (14:44)
[2022-08-14] MEDS: CHOLECALCIFEROL (VIT D3) 5000 UNITS (125 MCG) CAP PO SCH (14:44)
[2022-08-14] MEDS: ATORVASTATIN CA 10 MG TABLET (FP) PO SCH (21:24)
[2022-08-14] MEDS: MELATONIN 5 MG TABLETS PO PRN (21:24)
[2022-08-14] MEDS: LIDOCAINE PATCH REMOVAL MC SCH (21:34)
[2022-08-15] MEDS: GABAPENTIN 100 MG CAPSULE PO SCH ×3 (05:56→21:32)
[2022-08-15] MEDS: PANTOPRAZOLE SODIUM 40 MG VIAL IVPUSH SCH (05:56)
[2022-08-15] MEDS: LEVALBUTEROL HCL 0.31 MG/3 ML VIAL.NEB IH PRN ×2 (08:06→14:23)
[2022-08-15] MEDS: AZITHROMYCIN 250 MG TABLET PO SCH (09:16)
[2022-08-15] MEDS: APIXABAN 5 MG TABLET PO SCH ×2 (09:16→21:32)
[2022-08-15] MEDS: CYANOCOBALAMIN 1,000 MCG TABLET (FP) PO SCH (09:16)
[2022-08-15] MEDS: FAMOTIDINE 20 MG TABLET PO SCH (09:16)
[2022-08-15] MEDS: LIDOCAINE 5% TOPICAL PATCH TP SCH (09:18)
[2022-08-15] MEDS: BACLOFEN 10 MG TABLET (FP) PO SCH ×2 (09:19→21:32)
[2022-08-15] MEDS: methylPREDNISolone NA SUCC 40 MG/1 ML VIAL IVPUSH SCH ×2 (09:19→21:33)
[2022-08-15] MEDS: FLUTICASONE/UMECLIDIN/VILANTER(200-62.5-25 TRELEGY ELLIPTA) INAHLER IH SCH (09:20)
[2022-08-15] MEDS: CHOLECALCIFEROL (VIT D3) 5000 UNITS (125 MCG) CAP PO SCH (09:34)
[2022-08-15] MEDS: guaiFENesin 200 MG/10 ML 10 ML UNIT-DOSE CUPS PO PRN (21:30)
[2022-08-15] MEDS: ATORVASTATIN CA 10 MG TABLET (FP) PO SCH (21:32)
[2022-08-15] MEDS: LIDOCAINE PATCH REMOVAL MC SCH (22:15)
[2022-08-16] MEDS: GABAPENTIN 100 MG CAPSULE PO SCH ×3 (05:16→22:17)
[2022-08-16] MEDS: PANTOPRAZOLE SODIUM 40 MG VIAL IVPUSH SCH (05:16)
[2022-08-16] MEDS: BACLOFEN 10 MG TABLET (FP) PO SCH ×2 (09:12→22:17)
[2022-08-16] MEDS: APIXABAN 5 MG TABLET PO SCH ×2 (09:12→22:17)
[2022-08-16] MEDS: CYANOCOBALAMIN 1,000 MCG TABLET (FP) PO SCH (09:12)
[2022-08-16] MEDS: methylPREDNISolone NA SUCC 40 MG/1 ML VIAL IVPUSH SCH ×2 (09:12→22:17)
[2022-08-16] MEDS: FAMOTIDINE 20 MG TABLET PO SCH (09:12)
[2022-08-16] MEDS: FLUTICASONE/UMECLIDIN/VILANTER(200-62.5-25 TRELEGY ELLIPTA) INAHLER IH SCH (09:13)
[2022-08-16] MEDS: CHOLECALCIFEROL (VIT D3) 5000 UNITS (125 MCG) CAP PO SCH (09:13)
[2022-08-16] MEDS: LIDOCAINE 5% TOPICAL PATCH TP SCH (09:14)
[2022-08-16] MEDS: FUROSEMIDE 20 MG TABLET (FP) PO SCH (18:23)
[2022-08-16] MEDS: ATORVASTATIN CA 10 MG TABLET (FP) PO SCH (22:17)
[2022-08-16] MEDS: LIDOCAINE PATCH REMOVAL MC SCH (22:18)
[2022-08-16] MEDS: MELATONIN 5 MG TABLETS PO PRN (22:18)
[2022-08-17] MEDS: GABAPENTIN 100 MG CAPSULE PO SCH ×3 (06:05→21:23)
[2022-08-17] MEDS: PANTOPRAZOLE SODIUM 40 MG VIAL IVPUSH SCH (06:05)
[2022-08-17] MEDS: FAMOTIDINE 20 MG TABLET PO SCH (09:22)
[2022-08-17] MEDS: APIXABAN 5 MG TABLET PO SCH ×2 (09:23→21:23)
[2022-08-17] MEDS: CYANOCOBALAMIN 1,000 MCG TABLET (FP) PO SCH (09:23)
[2022-08-17] MEDS: FUROSEMIDE 20 MG TABLET (FP) PO SCH (09:23)
[2022-08-17] MEDS: BACLOFEN 10 MG TABLET (FP) PO SCH ×2 (09:23→21:23)
[2022-08-17] MEDS: CHOLECALCIFEROL (VIT D3) 5000 UNITS (125 MCG) CAP PO SCH (09:24)
[2022-08-17] MEDS: LIDOCAINE 5% TOPICAL PATCH TP SCH (09:24)
[2022-08-17] MEDS: methylPREDNISolone NA SUCC 40 MG/1 ML VIAL IVPUSH SCH (09:25)
[2022-08-17] MEDS: FLUTICASONE/UMECLIDIN/VILANTER(200-62.5-25 TRELEGY ELLIPTA) INAHLER IH SCH (09:25)
[2022-08-17] MEDS: VALSARTAN 40 MG TABLET PO SCH (13:22)
[2022-08-17] MEDS: guaiFENesin 200 MG/10 ML 10 ML UNIT-DOSE CUPS PO PRN (21:23)
[2022-08-17] MEDS: LIDOCAINE PATCH REMOVAL MC SCH (21:23)
[2022-08-17] MEDS: ATORVASTATIN CA 10 MG TABLET (FP) PO SCH (21:23)
[2022-08-17] MEDS: MELATONIN 5 MG TABLETS PO PRN (21:23)
[2022-08-18] MEDS: GABAPENTIN 100 MG CAPSULE PO SCH ×3 (06:05→21:36)
[2022-08-18] MEDS: PANTOPRAZOLE SODIUM 40 MG VIAL IVPUSH SCH (06:05)
[2022-08-18] MEDS: LIDOCAINE 5% TOPICAL PATCH TP SCH (09:30)
[2022-08-18] MEDS: FAMOTIDINE 20 MG TABLET PO SCH (09:31)
[2022-08-18] MEDS: FUROSEMIDE 20 MG TABLET (FP) PO SCH (09:32)
[2022-08-18] MEDS: VALSARTAN 40 MG TABLET PO SCH (09:32)
[2022-08-18] MEDS: BACLOFEN 10 MG TABLET (FP) PO SCH ×2 (09:32→21:37)
[2022-08-18] MEDS: CYANOCOBALAMIN 1,000 MCG TABLET (FP) PO SCH (09:32)
[2022-08-18] MEDS: APIXABAN 5 MG TABLET PO SCH ×2 (09:32→21:36)
[2022-08-18] MEDS: methylPREDNISolone NA SUCC 40 MG/1 ML VIAL IVPUSH SCH (09:33)
[2022-08-18] MEDS: FLUTICASONE/UMECLIDIN/VILANTER(200-62.5-25 TRELEGY ELLIPTA) INAHLER IH SCH (09:35)
[2022-08-18] MEDS: CHOLECALCIFEROL (VIT D3) 5000 UNITS (125 MCG) CAP PO SCH (09:42)
[2022-08-18] MEDS: NEBIVOLOL 5 MG TABLET (FP) PO SCH (10:51)
[2022-08-18] MEDS: LIDOCAINE PATCH REMOVAL MC SCH (21:36)
[2022-08-18] MEDS: ATORVASTATIN CA 10 MG TABLET (FP) PO SCH (21:36)
[2022-08-18] MEDS: MELATONIN 5 MG TABLETS PO PRN (21:36)
[2022-08-18] MEDS: guaiFENesin 200 MG/10 ML 10 ML UNIT-DOSE CUPS PO PRN (22:55)
[2022-08-19] MEDS: PANTOPRAZOLE SODIUM 40 MG VIAL IVPUSH SCH (06:18)
[2022-08-19] MEDS: GABAPENTIN 100 MG CAPSULE PO SCH ×3 (06:18→22:14)
[2022-08-19] MEDS: methylPREDNISolone NA SUCC 40 MG/1 ML VIAL IVPUSH SCH (10:12)
[2022-08-19] MEDS: LIDOCAINE 5% TOPICAL PATCH TP SCH (10:12)
[2022-08-19] MEDS: FAMOTIDINE 20 MG TABLET PO SCH (10:13)
[2022-08-19] MEDS: NEBIVOLOL 5 MG TABLET (FP) PO SCH (10:13)
[2022-08-19] MEDS: BACLOFEN 10 MG TABLET (FP) PO SCH ×2 (10:14→22:14)
[2022-08-19] MEDS: VALSARTAN 40 MG TABLET PO SCH (10:14)
[2022-08-19] MEDS: FUROSEMIDE 20 MG TABLET (FP) PO SCH (10:14)
[2022-08-19] MEDS: CYANOCOBALAMIN 1,000 MCG TABLET (FP) PO SCH (10:14)
[2022-08-19] MEDS: APIXABAN 5 MG TABLET PO SCH ×2 (10:14→22:13)
[2022-08-19] MEDS: CHOLECALCIFEROL (VIT D3) 5000 UNITS (125 MCG) CAP PO SCH (10:15)
[2022-08-19] MEDS: FLUTICASONE/UMECLIDIN/VILANTER(200-62.5-25 TRELEGY ELLIPTA) INAHLER IH SCH (10:20)
[2022-08-19] MEDS: ACETAMINOPHEN 325 MG TABLET (FP) PO PRN (14:09)
[2022-08-19] MEDS: guaiFENesin 200 MG/10 ML 10 ML UNIT-DOSE CUPS PO PRN (22:13)
[2022-08-19] MEDS: ATORVASTATIN CA 10 MG TABLET (FP) PO SCH (22:14)
[2022-08-19] MEDS: MELATONIN 5 MG TABLETS PO PRN (22:14)
[2022-08-19] MEDS: LIDOCAINE PATCH REMOVAL MC SCH (22:14)
[2022-08-20] MEDS: PANTOPRAZOLE SODIUM 40 MG VIAL IVPUSH SCH (05:58)
[2022-08-20] MEDS: GABAPENTIN 100 MG CAPSULE PO SCH ×2 (05:58→13:57)
[2022-08-20] MEDS: ACETAMINOPHEN 325 MG TABLET (FP) PO PRN (07:27)
[2022-08-20 08:47] VITALS: RESP 18
[2022-08-20] MEDS: FUROSEMIDE 20 MG TABLET (FP) PO SCH (09:35)
[2022-08-20] MEDS: CYANOCOBALAMIN 1,000 MCG TABLET (FP) PO SCH (09:35)
[2022-08-20] MEDS: VALSARTAN 40 MG TABLET PO SCH (09:35)
[2022-08-20] MEDS: FLUTICASONE/UMECLIDIN/VILANTER(200-62.5-25 TRELEGY ELLIPTA) INAHLER IH SCH (09:35)
[2022-08-20] MEDS: BACLOFEN 10 MG TABLET (FP) PO SCH (09:35)
[2022-08-20] MEDS: FAMOTIDINE 20 MG TABLET PO SCH (09:35)
[2022-08-20] MEDS: APIXABAN 5 MG TABLET PO SCH (09:35)
[2022-08-20] MEDS: NEBIVOLOL 5 MG TABLET (FP) PO SCH (09:35)
[2022-08-20] MEDS: LIDOCAINE 5% TOPICAL PATCH TP SCH (09:36)
[2022-08-20] MEDS: methylPREDNISolone NA SUCC 40 MG/1 ML VIAL IVPUSH SCH (10:44)
[2022-08-20] MEDS: CHOLECALCIFEROL (VIT D3) 5000 UNITS (125 MCG) CAP PO SCH (13:57)
[2022-08-20 14:07] VITALS: BP 112/54; PULSE 91; TEMP 98.4
== END 2022-08-20 19:44 | disposition home or self-care (01) | DRG 191 ==
LOC: JER 12:48 → JERBED 15:52 → J5S 21:31 → J4S 08-10 21:42
PROVIDERS: ADMIT Internal Medicine; ATTEND Internal Medicine
DX: J44.1 Chronic obstructive pulmonary disease with (acute) exacerbation (principal); I50.32 Chronic diastolic (congestive) heart failure; K21.9 Gastro-esophageal reflux disease without esophagitis; M54.50 Low back pain, unspecified; M54.30 Sciatica, unspecified side; F17.210 Nicotine dependence, cigarettes, uncomplicated; I48.0 Paroxysmal atrial fibrillation; M54.16 Radiculopathy, lumbar region; J20.9 Acute bronchitis, unspecified; E04.1 Nontoxic single thyroid nodule; J37.0 Chronic laryngitis; R09.02 Hypoxemia; I11.0 Hypertensive heart disease with heart failure; I25.10 Atherosclerotic heart disease of native coronary artery without angina pectoris
CPT/HCPCS: 0241U-QW; 36415; 70450-TC; 71045-TC-FY; 80048; 80053; 82803; 83735; 83880; 84439; 84443; 84484; 85025; 85651; 93005; 93010; 93306-TC; 94640; 94761; 99291; J0475; J1644

== ENCOUNTER 2022-08-26 15:31 | Inpatient (IN) | payer BC ==
[2022-08-26 18:15] LABS: POTASSIUM 5.1 mmol/L (3.5-5.1)
[2022-08-26 18:16] LABS: HEMATOCRIT 28.3 % (32.4-45.2); HEMOGLOBIN 9.1 GM/dL (10.7-15.3); MCH 30.2 pg (25.7-33.7); MCHC 32.2 g/dl (32.0-36.0); MEAN CELL VOLUME 93.6 fl (80-96); RBC 3.03 M/mm3 (3.60-5.2); RDW 14.8 % (11.6-15.6); WHITE BLOOD COUNT 10.7 K/mm3 (4.0-10.0)
[2022-08-26 18:17] LABS: CALCIUM 8.3 mg/dL (8.5-10.1); MAGNESIUM 1.8 mg/dL (1.8-2.4)
[2022-08-26 18:19] LABS: INR 1.79 (0.83-1.09); PROTHROMBIN TIME (PATIENT) 20.7 SEC (9.7-13.0)
[2022-08-26 18:20] LABS: CREATININE 0.9 mg/dL (0.55-1.3); PHOSPHOROUS 2.8 mg/dL (2.5-4.9)
[2022-08-26 18:22] LABS: ACTIVATED PTT 25.7 SECONDS (25.2-36.5); BILIRUBIN,TOTAL 0.4 mg/dL (0.2-1)
[2022-08-26 18:25] LABS: N-TERMINAL BNP 3128.2 pg/ml (5-450)
[2022-08-26 19:07] LABS: ANISOCYTOSIS 0; HELMET CELLS 0; HOWELL-JOLLY BODIES 0; MACROCYTOSIS 0; OVALOCYTE 0; PLATELET ESTIMATE DECREASED; ROULEAU 0; SICKELED CELLS 0; TARGET CELLS 0; TEAR DROP CELLS 0; TOXIC GRANULATION 0
[2022-08-26 19:09] LABS: VENOUS BASE EXCESS 6.7 mmol/L (-2-2); VENOUS PCO2 43.7 mmHg (38-52); VENOUS PH 7.469 (7.310-7.410)
[2022-08-26 19:10] LABS: MEAN PLT VOLUME 9.3 fl (7.5-11.1); PLATELET COUNT 93 10^3/uL (134-434)
[2022-08-26 19:15] LABS: ALBUMIN 2.3 g/dl (3.4-5.0)
[2022-08-26] MEDS ORDERED: ALBUTEROL SO4 2.5/IPRATROPIUM 0.5 INH SOL 3 ML VIAL.NEB. NEB ONE (21:51)
[2022-08-26] MEDS: ALBUTEROL SO4 2.5/IPRATROPIUM 0.5 INH SOL 3 ML VIAL.NEB. NEB SCH ×3 (21:54→22:45)
[2022-08-27 07:00] LABS: BASO % 0.1 % (0-2.0); EOS % 0.2 % (0-4.5); HEMATOCRIT 29.2 % (32.4-45.2); HEMOGLOBIN 9.9 GM/dL (10.7-15.3); LYMPH % 3.5 % (8-40); MCH 31.9 pg (25.7-33.7); MCHC 33.7 g/dl (32.0-36.0); MEAN CELL VOLUME 94.7 fl (80-96); MEAN PLT VOLUME 9.5 fl (7.5-11.1); MONO % 1.6 % (3.8-10.2); NEUT % 94.6 % (42.8-82.8); PLATELET COUNT 101 10^3/uL (134-434); RBC 3.09 M/mm3 (3.60-5.2); RDW 14.4 % (11.6-15.6); WHITE BLOOD COUNT 10.8 K/mm3 (4.0-10.0)
[2022-08-27 07:07] LABS: POTASSIUM 4.2 mmol/L (3.5-5.1)
[2022-08-27 07:13] LABS: CALCIUM 8.6 mg/dL (8.5-10.1)
[2022-08-27 07:14] LABS: ALBUMIN 2.2 g/dl (3.4-5.0); BLOOD UREA NITROGEN 20.4 mg/dL (7-18)
[2022-08-27 07:17] LABS: CREATININE 0.6 mg/dL (0.55-1.3)
[2022-08-27 07:18] LABS: BILIRUBIN,TOTAL 0.6 mg/dL (0.2-1); TOT PROT 5.1 g/dl (6.4-8.2)
[2022-08-27] MEDS ORDERED: NICOTINE POLACRILEX 4 MG GUM BUC PRN (10:27)
[2022-08-27] MEDS ORDERED: PANTOPRAZOLE SODIUM 40 MG VIAL IVPUSH SCH (10:30)
[2022-08-27] MEDS ORDERED: ATENOLOL 25 MG TABLET (FP) ONE (10:31)
[2022-08-27] MEDS ORDERED: LIDOCAINE 5% TOPICAL PATCH ONE (10:32)
[2022-08-27] MEDS ORDERED: PANTOPRAZOLE SODIUM 40 MG VIAL ONE (10:32)
[2022-08-27] MEDS: ATENOLOL 25 MG TABLET (FP) PO SCH (10:39)
[2022-08-27] MEDS: LIDOCAINE 5% TOPICAL PATCH TP SCH (10:39)
[2022-08-27] MEDS ORDERED: GABAPENTIN 100 MG CAPSULE ONE (14:51)
[2022-08-27] MEDS ORDERED: ALBUTEROL SO4 HFA INHALER IH ONE (14:51)
[2022-08-27] MEDS: GABAPENTIN 100 MG CAPSULE PO SCH ×2 (14:54→22:10)
[2022-08-27] MEDS: ALBUTEROL SO4 HFA INHALER IH SCH ×2 (14:54→22:10)
[2022-08-27] MEDS ORDERED: predniSONE 20 MG TABLET (UD) ONE (17:01)
[2022-08-27] MEDS: predniSONE 20 MG TABLET (UD) PO SCH (17:02)
[2022-08-27 18:56] VITALS: BMI 31.3
[2022-08-27] MEDS: BACLOFEN 10 MG TABLET (FP) PO SCH (22:10)
[2022-08-27] MEDS: ATORVASTATIN CA 10 MG TABLET (FP) PO SCH (22:10)
[2022-08-27] MEDS: LIDOCAINE PATCH REMOVAL MC SCH (22:14)
[2022-08-28] MEDS: GABAPENTIN 100 MG CAPSULE PO SCH ×3 (06:52→21:49)
[2022-08-28] MEDS: ALBUTEROL SO4 HFA INHALER IH SCH ×3 (06:52→21:49)
[2022-08-28 08:02] LABS: HEMATOCRIT 31.2 % (32.4-45.2); HEMOGLOBIN 10.4 GM/dL (10.7-15.3); MCH 31.7 pg (25.7-33.7); MCHC 33.5 g/dl (32.0-36.0); MEAN CELL VOLUME 94.7 fl (80-96); MEAN PLT VOLUME 10.1 fl (7.5-11.1); PLATELET COUNT 124 10^3/uL (134-434); RBC 3.29 M/mm3 (3.60-5.2); RDW 15.1 % (11.6-15.6)
[2022-08-28 08:49] LABS: POTASSIUM 4.2 mmol/L (3.5-5.1)
[2022-08-28 08:58] LABS: ALBUMIN 2.1 g/dl (3.4-5.0); BLOOD UREA NITROGEN 22.2 mg/dL (7-18); CREATININE 0.6 mg/dL (0.55-1.3)
[2022-08-28 09:00] LABS: BILIRUBIN,TOTAL 0.7 mg/dL (0.2-1); TOT PROT 5.2 g/dl (6.4-8.2)
[2022-08-28 09:01] LABS: BILIRUBIN,DIRECT 0.3 mg/dL (0.0-0.2)
[2022-08-28 09:02] LABS: CALCIUM 8.9 mg/dL (8.5-10.1)
[2022-08-28] MEDS: PANTOPRAZOLE 40 MG TABLET PO SCH (11:12)
[2022-08-28] MEDS: ATENOLOL 25 MG TABLET (FP) PO SCH (11:12)
[2022-08-28] MEDS: LIDOCAINE 5% TOPICAL PATCH TP SCH (11:12)
[2022-08-28] MEDS: BACLOFEN 10 MG TABLET (FP) PO SCH ×2 (11:13→21:49)
[2022-08-28] MEDS: predniSONE 20 MG TABLET (UD) PO SCH (11:13)
[2022-08-28 11:15] LABS: ANISOCYTOSIS 1+; MACROCYTOSIS 0; PLATELET ESTIMATE DECREASED
[2022-08-28] MEDS ORDERED: ALBUTEROL SO4 2.5/IPRATROPIUM 0.5 INH SOL 3 ML VIAL.NEB. NEB PRN (17:58)
[2022-08-28] MEDS ORDERED: IRON SUCROSE INJECTION 200 MG in SODIUM CHLORIDE 90 ML IVPB ONE (17:59)
[2022-08-28] MEDS: ACETAMINOPHEN 325 MG TABLET (FP) PO PRN (18:45)
[2022-08-28] MEDS: ATORVASTATIN CA 10 MG TABLET (FP) PO SCH (21:49)
[2022-08-28] MEDS: LIDOCAINE PATCH REMOVAL MC SCH (22:01)
[2022-08-29] MEDS: ALBUTEROL SO4 HFA INHALER IH SCH ×2 (06:52→13:31)
[2022-08-29] MEDS: GABAPENTIN 100 MG CAPSULE PO SCH ×3 (06:52→22:00)
[2022-08-29 07:32] LABS: HEMATOCRIT 24.7 % (32.4-45.2); HEMOGLOBIN 8.4 GM/dL (10.7-15.3); MCHC 33.9 g/dl (32.0-36.0); MEAN CELL VOLUME 94.5 fl (80-96); PLATELET COUNT 125 10^3/uL (134-434); RBC 2.62 M/mm3 (3.60-5.2); RDW 14.4 % (11.6-15.6); WHITE BLOOD COUNT 6.3 K/mm3 (4.0-10.0)
[2022-08-29 08:31] LABS: BILIRUBIN,DIRECT 0.2 mg/dL (0.0-0.2)
[2022-08-29 08:32] LABS: BILIRUBIN,TOTAL 0.4 mg/dL (0.2-1); TOT PROT 4.8 g/dl (6.4-8.2)
[2022-08-29] MEDS: ATENOLOL 25 MG TABLET (FP) PO SCH (09:30)
[2022-08-29] MEDS: predniSONE 20 MG TABLET (UD) PO SCH (09:30)
[2022-08-29] MEDS: BACLOFEN 10 MG TABLET (FP) PO SCH ×2 (09:30→21:59)
[2022-08-29] MEDS: PANTOPRAZOLE 40 MG TABLET PO SCH (09:30)
[2022-08-29] MEDS: LIDOCAINE 5% TOPICAL PATCH TP SCH (09:30)
[2022-08-29] MEDS ORDERED: IRON SUCROSE INJECTION 200 MG in SODIUM CHLORIDE 90 ML IVPB ONE (15:45)
[2022-08-29 19:13] LABS: GLIADIN ANTIBODY IGA 2 units (0-19); GLIADIN ANTIBODY IGG 1 units (0-19); TRANSGLUTAMINASE IGG < 2 U/mL (0-5)
[2022-08-29] MEDS: LIDOCAINE PATCH REMOVAL MC SCH (21:58)
[2022-08-29] MEDS: ATORVASTATIN CA 10 MG TABLET (FP) PO SCH (21:59)
[2022-08-30] MEDS: GABAPENTIN 100 MG CAPSULE PO SCH ×3 (06:29→21:48)
[2022-08-30 07:14] LABS: BASO % 0.2 % (0-2.0); EOS % 1.2 % (0-4.5); HEMOGLOBIN 8.3 GM/dL (10.7-15.3); LYMPH % 13.5 % (8-40); MCH 31.3 pg (25.7-33.7); MCHC 33.2 g/dl (32.0-36.0); MEAN CELL VOLUME 94.3 fl (80-96); MEAN PLT VOLUME 10.4 fl (7.5-11.1); MONO % 5.3 % (3.8-10.2); NEUT % 79.8 % (42.8-82.8); PLATELET COUNT 169 10^3/uL (134-434); RBC 2.65 M/mm3 (3.60-5.2); RDW 14.9 % (11.6-15.6); WHITE BLOOD COUNT 6.2 K/mm3 (4.0-10.0)
[2022-08-30 07:53] LABS: POTASSIUM 4.4 mmol/L (3.5-5.1)
[2022-08-30 07:57] LABS: ALBUMIN 2.1 g/dl (3.4-5.0); BLOOD UREA NITROGEN 23.4 mg/dL (7-18); CALCIUM 8.2 mg/dL (8.5-10.1)
[2022-08-30 08:00] LABS: BILIRUBIN,DIRECT 0.1 mg/dL (0.0-0.2); CREATININE 0.6 mg/dL (0.55-1.3)
[2022-08-30 08:02] LABS: BILIRUBIN,TOTAL 0.7 mg/dL (0.2-1); TOT PROT 4.7 g/dl (6.4-8.2)
[2022-08-30] MEDS: ATENOLOL 25 MG TABLET (FP) PO SCH (10:25)
[2022-08-30] MEDS: predniSONE 20 MG TABLET (UD) PO SCH (10:26)
[2022-08-30] MEDS: BACLOFEN 10 MG TABLET (FP) PO SCH ×2 (10:27→21:48)
[2022-08-30] MEDS: PANTOPRAZOLE 40 MG TABLET PO SCH (10:27)
[2022-08-30] MEDS: LIDOCAINE 5% TOPICAL PATCH TP SCH (10:29)
[2022-08-30] MEDS: ALBUTEROL SO4 HFA INHALER IH SCH ×2 (13:43→22:00)
[2022-08-30] MEDS: ATORVASTATIN CA 10 MG TABLET (FP) PO SCH (21:48)
[2022-08-30] MEDS: LIDOCAINE PATCH REMOVAL MC SCH (21:49)
[2022-08-31] MEDS: GABAPENTIN 100 MG CAPSULE PO SCH ×3 (06:13→21:33)
[2022-08-31] MEDS: ALBUTEROL SO4 HFA INHALER IH SCH ×4 (06:13→21:35)
[2022-08-31 07:28] LABS: BASO % 0.2 % (0-2.0); EOS % 2.2 % (0-4.5); HEMATOCRIT 23.5 % (32.4-45.2); LYMPH % 21.1 % (8-40); MCHC 34.2 g/dl (32.0-36.0); MEAN CELL VOLUME 93.6 fl (80-96); MEAN PLT VOLUME 9.8 fl (7.5-11.1); MONO % 7.5 % (3.8-10.2); PLATELET COUNT 216 10^3/uL (134-434); RBC 2.51 M/mm3 (3.60-5.2); WHITE BLOOD COUNT 6.1 K/mm3 (4.0-10.0)
[2022-08-31] MEDS: LIDOCAINE 5% TOPICAL PATCH TP SCH (09:36)
[2022-08-31] MEDS: predniSONE 20 MG TABLET (UD) PO SCH (09:36)
[2022-08-31] MEDS: ATENOLOL 25 MG TABLET (FP) PO SCH (09:36)
[2022-08-31] MEDS: PANTOPRAZOLE 40 MG TABLET PO SCH (09:36)
[2022-08-31] MEDS: BACLOFEN 10 MG TABLET (FP) PO SCH ×2 (09:37→21:34)
[2022-08-31] MEDS ORDERED: IRON SUCROSE INJECTION 200 MG in SODIUM CHLORIDE 90 ML IVPB ONE (16:08)
[2022-08-31] MEDS: LIDOCAINE PATCH REMOVAL MC SCH (21:34)
[2022-08-31] MEDS: ATORVASTATIN CA 10 MG TABLET (FP) PO SCH (21:34)
[2022-09-01] MEDS: MELATONIN 5 MG TABLETS PO PRN ×2 (01:23→21:53)
[2022-09-01] MEDS: GABAPENTIN 100 MG CAPSULE PO SCH ×3 (06:45→21:50)
[2022-09-01] MEDS: ALBUTEROL SO4 HFA INHALER IH SCH ×3 (06:45→21:53)
[2022-09-01 08:36] LABS: HEMATOCRIT 22.6 % (32.4-45.2); HEMOGLOBIN 7.7 GM/dL (10.7-15.3); MCH 32.2 pg (25.7-33.7); MCHC 34.1 g/dl (32.0-36.0); MEAN CELL VOLUME 94.3 fl (80-96); MEAN PLT VOLUME 9.5 fl (7.5-11.1); PLATELET COUNT 237 10^3/uL (134-434); RDW 14.9 % (11.6-15.6); WHITE BLOOD COUNT 5.5 K/mm3 (4.0-10.0)
[2022-09-01 08:37] LABS: POTASSIUM 4.5 mmol/L (3.5-5.1)
[2022-09-01 08:40] LABS: BLOOD UREA NITROGEN 18.7 mg/dL (7-18); CALCIUM 8.2 mg/dL (8.5-10.1)
[2022-09-01 08:41] LABS: ALBUMIN 2.3 g/dl (3.4-5.0)
[2022-09-01 08:44] LABS: CREATININE 0.8 mg/dL (0.55-1.3)
[2022-09-01 08:45] LABS: BILIRUBIN,TOTAL 0.5 mg/dL (0.2-1); TOT PROT 4.8 g/dl (6.4-8.2)
[2022-09-01] MEDS: predniSONE 20 MG TABLET (UD) PO SCH ×2 (10:22→11:35)
[2022-09-01] MEDS: PANTOPRAZOLE 40 MG TABLET PO SCH (10:23)
[2022-09-01] MEDS: LIDOCAINE 5% TOPICAL PATCH TP SCH (10:23)
[2022-09-01] MEDS: ATENOLOL 25 MG TABLET (FP) PO SCH (10:23)
[2022-09-01] MEDS: BACLOFEN 10 MG TABLET (FP) PO SCH ×2 (10:23→21:53)
[2022-09-01] MEDS ORDERED: IRON SUCROSE INJECTION 200 MG in SODIUM CHLORIDE 90 ML IVPB ONE (11:30)
[2022-09-01] MEDS: ACETAMINOPHEN 325 MG TABLET (FP) PO PRN (21:50)
[2022-09-01] MEDS: LIDOCAINE PATCH REMOVAL MC SCH (21:53)
[2022-09-01] MEDS: ATORVASTATIN CA 10 MG TABLET (FP) PO SCH (21:53)
[2022-09-02] MEDS: GABAPENTIN 100 MG CAPSULE PO SCH ×3 (05:59→22:41)
[2022-09-02] MEDS: ALBUTEROL SO4 HFA INHALER IH SCH ×3 (06:02→22:40)
[2022-09-02 07:50] LABS: HEMATOCRIT 23.1 % (32.4-45.2); HEMOGLOBIN 7.6 GM/dL (10.7-15.3); MCH 32.1 pg (25.7-33.7); MCHC 33.1 g/dl (32.0-36.0); MEAN PLT VOLUME 9.8 fl (7.5-11.1); PLATELET COUNT 283 10^3/uL (134-434); RBC 2.38 M/mm3 (3.60-5.2); RDW 15.3 % (11.6-15.6)
[2022-09-02 09:25] LABS: ANISOCYTOSIS 2+; MACROCYTOSIS 0
[2022-09-02] MEDS: LIDOCAINE 5% TOPICAL PATCH TP SCH (13:08)
[2022-09-02] MEDS: PANTOPRAZOLE 40 MG TABLET PO SCH (13:08)
[2022-09-02] MEDS: ATENOLOL 25 MG TABLET (FP) PO SCH (13:09)
[2022-09-02] MEDS: BACLOFEN 10 MG TABLET (FP) PO SCH ×2 (13:09→22:44)
[2022-09-02] MEDS: ATORVASTATIN CA 10 MG TABLET (FP) PO SCH (22:41)
[2022-09-02] MEDS: LIDOCAINE PATCH REMOVAL MC SCH (22:43)
[2022-09-02] MEDS: ACETAMINOPHEN 325 MG TABLET (FP) PO PRN (22:50)
[2022-09-03] MEDS: GABAPENTIN 100 MG CAPSULE PO SCH ×3 (06:16→22:44)
[2022-09-03] MEDS: ALBUTEROL SO4 HFA INHALER IH SCH ×3 (06:16→22:44)
[2022-09-03 08:04] LABS: HEMATOCRIT 30.4 % (32.4-45.2); HEMOGLOBIN 10.2 GM/dL (10.7-15.3); MCH 31.8 pg (25.7-33.7); MCHC 33.5 g/dl (32.0-36.0); MEAN CELL VOLUME 95.1 fl (80-96); MEAN PLT VOLUME 8.6 fl (7.5-11.1); PLATELET COUNT 313 10^3/uL (134-434); RBC 3.19 M/mm3 (3.60-5.2); RDW 17.3 % (11.6-15.6); WHITE BLOOD COUNT 3.8 K/mm3 (4.0-10.0)
[2022-09-03 10:05] LABS: HEMATOCRIT 30.5 % (32.4-45.2); HEMOGLOBIN 10.4 GM/dL (10.7-15.3); MCH 31.7 pg (25.7-33.7); MEAN CELL VOLUME 93.2 fl (80-96); MEAN PLT VOLUME 8.9 fl (7.5-11.1); PLATELET COUNT 316 10^3/uL (134-434); RBC 3.27 M/mm3 (3.60-5.2); RDW 17.2 % (11.6-15.6); WHITE BLOOD COUNT 3.9 K/mm3 (4.0-10.0)
[2022-09-03 10:23] LABS: POTASSIUM 4.2 mmol/L (3.5-5.1)
[2022-09-03 10:25] LABS: CALCIUM 8.4 mg/dL (8.5-10.1)
[2022-09-03 10:26] LABS: ALBUMIN 2.6 g/dl (3.4-5.0); BLOOD UREA NITROGEN 17.3 mg/dL (7-18)
[2022-09-03 10:29] LABS: CREATININE 0.7 mg/dL (0.55-1.3)
[2022-09-03 10:31] LABS: BILIRUBIN,TOTAL 0.7 mg/dL (0.2-1); TOT PROT 5.3 g/dl (6.4-8.2)
[2022-09-03 10:49] LABS: ANISOCYTOSIS 2+; MACROCYTOSIS 1+
[2022-09-03] MEDS: LIDOCAINE 5% TOPICAL PATCH TP SCH (14:23)
[2022-09-03] MEDS: ATENOLOL 25 MG TABLET (FP) PO SCH (14:24)
[2022-09-03] MEDS: BACLOFEN 10 MG TABLET (FP) PO SCH ×2 (14:24→22:43)
[2022-09-03] MEDS: PANTOPRAZOLE 40 MG TABLET PO SCH (14:24)
[2022-09-03] MEDS: LIDOCAINE PATCH REMOVAL MC SCH (22:43)
[2022-09-03] MEDS: ATORVASTATIN CA 10 MG TABLET (FP) PO SCH (22:43)
[2022-09-03] MEDS: MELATONIN 5 MG TABLETS PO PRN (22:44)
[2022-09-03] MEDS: ACETAMINOPHEN 325 MG TABLET (FP) PO PRN (22:44)
[2022-09-04] MEDS: ALBUTEROL SO4 HFA INHALER IH SCH ×3 (05:48→20:32)
[2022-09-04] MEDS: GABAPENTIN 100 MG CAPSULE PO SCH ×3 (05:48→21:32)
[2022-09-04] MEDS ORDERED: REGADENOSON 0.4 MG/5 ML PRE-FILLED SYRINGE IVPUSH ONE ×2 (08:58→09:00)
[2022-09-04] MEDS: ATENOLOL 25 MG TABLET (FP) PO SCH (10:58)
[2022-09-04] MEDS: BACLOFEN 10 MG TABLET (FP) PO SCH ×2 (11:00→21:32)
[2022-09-04] MEDS: PANTOPRAZOLE 40 MG TABLET PO SCH (11:00)
[2022-09-04] MEDS: ACETAMINOPHEN 325 MG TABLET (FP) PO PRN (11:00)
[2022-09-04] MEDS: LIDOCAINE 5% TOPICAL PATCH TP SCH (11:00)
[2022-09-04] MEDS ORDERED: BENZOCAINE/MENTH/CETYLPYRD CL 1 EACH LOZENGE MM PRN (13:04)
[2022-09-04] MEDS ORDERED: ALBUTEROL SO4 2.5/IPRATROPIUM 0.5 INH SOL 3 ML VIAL.NEB. NEB PRN (13:04)
[2022-09-04] MEDS ORDERED: PEG 3350/NA SULF BICARB CL/KCL 4000 ML SOLN.RECON PO ONE (17:00)
[2022-09-04] MEDS: guaiFENesin 200 MG/10 ML 10 ML UNIT-DOSE CUPS PO PRN (17:22)
[2022-09-04] MEDS ORDERED: NICOTINE POLACRILEX 4 MG GUM BUC PRN (19:16)
[2022-09-04] MEDS ORDERED: MELATONIN 5 MG TABLETS PO PRN (19:16)
[2022-09-04] MEDS ORDERED: BISACODYL 5 MG TABLET.DR (FP) PO ONE ×2 (20:00→20:15)
[2022-09-04] MEDS: ATORVASTATIN CA 10 MG TABLET (FP) PO SCH (21:32)
[2022-09-04] MEDS: LIDOCAINE PATCH REMOVAL MC SCH (22:30)
[2022-09-05] MEDS: GABAPENTIN 100 MG CAPSULE PO SCH ×3 (05:30→21:20)
[2022-09-05 09:47] LABS: BASO % 0.5 % (0-2.0); EOS % 1.5 % (0-4.5); HEMATOCRIT 30.6 % (32.4-45.2); HEMOGLOBIN 10.3 GM/dL (10.7-15.3); LYMPH % 15.9 % (8-40); MCH 32.3 pg (25.7-33.7); MCHC 33.7 g/dl (32.0-36.0); MEAN CELL VOLUME 95.9 fl (80-96); MEAN PLT VOLUME 8.6 fl (7.5-11.1); MONO % 10.6 % (3.8-10.2); NEUT % 71.5 % (42.8-82.8); PLATELET COUNT 336 10^3/uL (134-434); RBC 3.19 M/mm3 (3.60-5.2); RDW 18.3 % (11.6-15.6); WHITE BLOOD COUNT 3.6 K/mm3 (4.0-10.0)
[2022-09-05 09:57] LABS: POTASSIUM 4.6 mmol/L (3.5-5.1)
[2022-09-05 10:04] LABS: CALCIUM 8.6 mg/dL (8.5-10.1)
[2022-09-05 10:05] LABS: ALBUMIN 2.7 g/dl (3.4-5.0); BLOOD UREA NITROGEN 10.5 mg/dL (7-18)
[2022-09-05 10:07] LABS: CREATININE 0.6 mg/dL (0.55-1.3)
[2022-09-05 10:09] LABS: BILIRUBIN,TOTAL 0.8 mg/dL (0.2-1); TOT PROT 5.3 g/dl (6.4-8.2)
[2022-09-05] MEDS: ALBUTEROL SO4 HFA INHALER IH SCH ×3 (10:14→21:23)
[2022-09-05] MEDS: PANTOPRAZOLE 40 MG TABLET PO SCH (10:15)
[2022-09-05] MEDS: ATENOLOL 25 MG TABLET (FP) PO SCH (10:16)
[2022-09-05] MEDS: LIDOCAINE 5% TOPICAL PATCH TP SCH (10:16)
[2022-09-05] MEDS: BACLOFEN 10 MG TABLET (FP) PO SCH ×2 (10:16→21:20)
[2022-09-05] MEDS: ACETAMINOPHEN 325 MG TABLET (FP) PO PRN (10:28)
[2022-09-05] MEDS: guaiFENesin 200 MG/10 ML 10 ML UNIT-DOSE CUPS PO PRN (10:29)
[2022-09-05] MEDS ORDERED: PHYTONADIONE 10 MG/1 ML AMP IVPB ONE (10:48)
[2022-09-05] MEDS ORDERED: PEG 3350/NA SULF BICARB CL/KCL 4000 ML SOLN.RECON PO ONE (17:00)
[2022-09-05] MEDS ORDERED: BISACODYL 5 MG TABLET.DR (FP) PO ONE (20:00)
[2022-09-05] MEDS: ATORVASTATIN CA 10 MG TABLET (FP) PO SCH (21:21)
[2022-09-05] MEDS: LIDOCAINE PATCH REMOVAL MC SCH (21:23)
[2022-09-06] MEDS: ACETAMINOPHEN 325 MG TABLET (FP) PO PRN (01:42)
[2022-09-06] MEDS: GABAPENTIN 100 MG CAPSULE PO SCH ×3 (06:30→22:50)
[2022-09-06] MEDS: PANTOPRAZOLE 40 MG TABLET PO SCH (09:09)
[2022-09-06] MEDS: BACLOFEN 10 MG TABLET (FP) PO SCH ×2 (09:09→22:50)
[2022-09-06] MEDS: ATENOLOL 25 MG TABLET (FP) PO SCH (09:09)
[2022-09-06] MEDS: ALBUTEROL SO4 HFA INHALER IH SCH ×3 (09:09→22:50)
[2022-09-06] MEDS: LIDOCAINE 5% TOPICAL PATCH TP SCH (09:15)
[2022-09-06 09:17] LABS: INR 1.04 (0.83-1.09); PROTHROMBIN TIME (PATIENT) 12.1 SEC (9.7-13.0)
[2022-09-06 09:31] LABS: POTASSIUM 3.7 mmol/L (3.5-5.1)
[2022-09-06 09:38] LABS: CALCIUM 8.3 mg/dL (8.5-10.1)
[2022-09-06 09:39] LABS: ALBUMIN 2.6 g/dl (3.4-5.0); BLOOD UREA NITROGEN 5.8 mg/dL (7-18); CHOLESTEROL 99 mg/dL (50-200)
[2022-09-06 09:40] LABS: HEMOGLOBIN 10.2 GM/dL (10.7-15.3); MCH 32.6 pg (25.7-33.7); MCHC 34.1 g/dl (32.0-36.0); MEAN CELL VOLUME 95.6 fl (80-96); PLATELET COUNT 361 10^3/uL (134-434); RBC 3.14 M/mm3 (3.60-5.2); RDW 18.2 % (11.6-15.6); WHITE BLOOD COUNT 3.4 K/mm3 (4.0-10.0)
[2022-09-06 09:41] LABS: CREATININE 0.6 mg/dL (0.55-1.3); LDL CHOLESTEROL (ONLY SJRH) 44 mg/dL (5-100)
[2022-09-06 09:43] LABS: HDL CHOLESTEROL 45 mg/dL (40-60)
[2022-09-06 09:44] LABS: BILIRUBIN,TOTAL 0.4 mg/dL (0.2-1)
[2022-09-06 10:38] LABS: ANISOCYTOSIS 0; HELMET CELLS 0; HOWELL-JOLLY BODIES 0; MACROCYTOSIS 0; OVALOCYTE 0; ROULEAU 0; SICKELED CELLS 0; TARGET CELLS 0; TEAR DROP CELLS 0; TOXIC GRANULATION 0
[2022-09-06] MEDS ORDERED: LIDOCAINE VISCOUS 2% ORAL/TOP 15 ML UNIT-DOSE CUP ONE (12:01)
[2022-09-06] MEDS: ATORVASTATIN CA 10 MG TABLET (FP) PO SCH (22:49)
[2022-09-06] MEDS: APIXABAN 5 MG TABLET PO SCH (22:50)
[2022-09-06] MEDS: LIDOCAINE PATCH REMOVAL MC SCH (22:50)
[2022-09-07] MEDS: GABAPENTIN 100 MG CAPSULE PO SCH ×2 (06:35→13:12)
[2022-09-07 10:20] LABS: HEMOGLOBIN 10.2 GM/dL (10.7-15.3); MCH 33.3 pg (25.7-33.7); MCHC 35.1 g/dl (32.0-36.0); MEAN CELL VOLUME 94.8 fl (80-96); MEAN PLT VOLUME 8.6 fl (7.5-11.1); PLATELET COUNT 332 10^3/uL (134-434); RBC 3.06 M/mm3 (3.60-5.2); RDW 18.8 % (11.6-15.6)
[2022-09-07 12:16] VITALS: BP 143/77; PULSE 128; RESP 20; TEMP 98.9
[2022-09-07] MEDS: LIDOCAINE 5% TOPICAL PATCH TP SCH (12:16)
[2022-09-07] MEDS: PANTOPRAZOLE 40 MG TABLET PO SCH (12:16)
[2022-09-07] MEDS: APIXABAN 5 MG TABLET PO SCH (12:16)
[2022-09-07] MEDS: BACLOFEN 10 MG TABLET (FP) PO SCH (12:17)
[2022-09-07] MEDS: ALBUTEROL SO4 HFA INHALER IH SCH ×2 (12:17→13:12)
[2022-09-07] MEDS: ATENOLOL 25 MG TABLET (FP) PO SCH (12:17)
== END 2022-09-07 13:57 | disposition home or self-care (01) | DRG 378 ==
LOC: JER 15:31 → JERBED 18:43 → J4W 08-27 17:39 → J5S 09-04 13:54
PROVIDERS: ADMIT Internal Medicine; ATTEND Internal Medicine
PROC: 30233N1 Transfusion of Nonautologous Red Blood Cells into Peripheral Vein, Percutaneous Approach (ICD-10-PCS; 2022-09-02)
PROC: 0DB58ZX Excision of Esophagus, Via Natural or Artificial Opening Endoscopic, Diagnostic (ICD-10-PCS; 2022-09-06)
PROC: 0DB68ZX Excision of Stomach, Via Natural or Artificial Opening Endoscopic, Diagnostic (ICD-10-PCS; 2022-09-06)
PROC: 0DBN8ZX Excision of Sigmoid Colon, Via Natural or Artificial Opening Endoscopic, Diagnostic (ICD-10-PCS; principal; 2022-09-06 14:30)
DX: K92.2 Gastrointestinal hemorrhage, unspecified (principal); I48.19 Other persistent atrial fibrillation; J90 Pleural effusion, not elsewhere classified; J98.11 Atelectasis; I95.9 Hypotension, unspecified; J44.9 Chronic obstructive pulmonary disease, unspecified; E04.1 Nontoxic single thyroid nodule; M54.50 Low back pain, unspecified; M54.30 Sciatica, unspecified side; I10 Essential (primary) hypertension; K21.9 Gastro-esophageal reflux disease without esophagitis; K44.9 Diaphragmatic hernia without obstruction or gangrene; D50.0 Iron deficiency anemia secondary to blood loss (chronic); M54.6 Pain in thoracic spine; R74.01 Elevation of levels of liver transaminase levels; Z87.11 Personal history of peptic ulcer disease; D69.6 Thrombocytopenia, unspecified; D35.02 Benign neoplasm of left adrenal gland; D64.9 Anemia, unspecified; E78.00 Pure hypercholesterolemia, unspecified; D35.01 Benign neoplasm of right adrenal gland; I48.0 Paroxysmal atrial fibrillation; I25.10 Atherosclerotic heart disease of native coronary artery without angina pectoris; E78.5 Hyperlipidemia, unspecified; E66.9 Obesity, unspecified; Z68.31 Body mass index [BMI] 31.0-31.9, adult; R73.03 Prediabetes; K29.60 Other gastritis without bleeding; K46.9 Unspecified abdominal hernia without obstruction or gangrene; K20.80 Other esophagitis without bleeding; K64.8 Other hemorrhoids
CPT/HCPCS: 0241U-QW; 36415; 36430; 70450-TC; 71045-TC-FY; 74174-TC; 78452-TC; 80053; 80061; 80076; 82272; 82550; 82728; 82784; 82803; 83010; 83516; 83540; 83550; 83605; 83615; 83735; 83880; 84100; 84155; 84165; 84443; 84484; 85025; 85027; 85045; 85610; 85730; 86038; 86334; 86705; 86803; 86850; 86900; 86901; 86922; 87040; 87340; 87517; 88305-TC; 93005; 93010; 93017; 94640; 94761; 97116-GP; 97162-GP; 99285-25; A9502; J0475; J1756; J2785; P9038; P9058; Q9967

== ENCOUNTER 2022-09-24 16:27 | Inpatient (IN) | payer BC ==
[2022-09-24] MEDS ORDERED: MAGNESIUM SULF 50% (8.12 MEQ/2 ML-1 GM VIAL) IVPB ONE (16:47)
[2022-09-24] MEDS ORDERED: VANCOMYCIN 1,500 MG in DEXTROSE 5%-WATER - 250 ML IVPB ONE (16:58)
[2022-09-24] MEDS ORDERED: AZITHROMYCIN IVPB 500 MG in DEXTROSE 5%-WATER - 250 ML IVPB ONE (16:58)
[2022-09-24] MEDS ORDERED: PIPERACILLIN/TAZOB 4.5 GM 4.5 GM in DEXTROSE 5%-WATER - 100 ML IVPB ONE (16:58)
[2022-09-24 16:59] VITALS: BMI 32.3
[2022-09-24] MEDS ORDERED: PIPERACILLIN/TAZOB 4.5 GM 4.5 GM/100 ML BAG IVPB ONE (17:03)
[2022-09-24] MEDS ORDERED: FUROSEMIDE 40 MG/4 ML INJECTABLE VIAL ONE (17:03)
[2022-09-24] MEDS ORDERED: AZITHROMYCIN IVPB 500 MG/250 ML BAG IVPB ONE (17:03)
[2022-09-24] MEDS ORDERED: FUROSEMIDE 40 MG/4 ML INJECTABLE VIAL IVPUSH ONE (17:03)
[2022-09-24] MEDS ORDERED: MAGNESIUM SULFATE IN WATER 2 GM/50 ML IVPB IVPB ONE ×2 (17:03→19:55)
[2022-09-24] MEDS ORDERED: ALBUTEROL SO4 2.5/IPRATROPIUM 0.5 INH SOL 3 ML VIAL.NEB. NEB ONE (17:03)
[2022-09-24 17:11] LABS: BASO % 0.4 % (0-2.0); EOS % 0.8 % (0-4.5); HEMATOCRIT 37.2 % (32.4-45.2); HEMOGLOBIN 12.1 GM/dL (10.7-15.3); LYMPH % 7.1 % (8-40); MCH 32.1 pg (25.7-33.7); MCHC 32.5 g/dl (32.0-36.0); MEAN CELL VOLUME 98.8 fl (80-96); MEAN PLT VOLUME 7.5 fl (7.5-11.1); MONO % 5.4 % (3.8-10.2); NEUT % 86.3 % (42.8-82.8); PLATELET COUNT 381 10^3/uL (134-434); RBC 3.76 M/mm3 (3.60-5.2); RDW 20.6 % (11.6-15.6); WHITE BLOOD COUNT 12.8 K/mm3 (4.0-10.0)
[2022-09-24 17:19] LABS: INR 1.75 (0.83-1.09); PROTHROMBIN TIME (PATIENT) 20.2 SEC (9.7-13.0)
[2022-09-24 17:22] LABS: ACTIVATED PTT 31.5 SECONDS (25.2-36.5)
[2022-09-24 17:24] LABS: BLOOD UREA NITROGEN 13.5 mg/dL (7-18); CALCIUM 9.1 mg/dL (8.5-10.1)
[2022-09-24 17:25] LABS: ALBUMIN 3.4 g/dl (3.4-5.0); MAGNESIUM 1.5 mg/dL (1.8-2.4)
[2022-09-24 17:28] LABS: CREATININE 0.7 mg/dL (0.55-1.3)
[2022-09-24 17:29] LABS: BILIRUBIN,TOTAL 0.4 mg/dL (0.2-1); TOT PROT 6.3 g/dl (6.4-8.2)
[2022-09-24 17:33] LABS: N-TERMINAL BNP 5623.4 pg/ml (5-450)
[2022-09-24] MEDS: ALBUTEROL SO4 2.5/IPRATROPIUM 0.5 INH SOL 3 ML VIAL.NEB. NEB SCH ×3 (17:55→18:46)
[2022-09-24 21:38] LABS: ANISOCYTOSIS 2+; MACROCYTOSIS 0; OVALOCYTE 2+; TEAR DROP CELLS 2+
[2022-09-25] MEDS ORDERED: APIXABAN 5 MG TABLET ONE ×2 (01:11→10:00)
[2022-09-25] MEDS ORDERED: ATORVASTATIN CA 10 MG TABLET (FP) ONE (01:11)
[2022-09-25] MEDS: ATORVASTATIN CA 10 MG TABLET (FP) PO SCH ×2 (01:22→21:03)
[2022-09-25] MEDS: APIXABAN 5 MG TABLET PO SCH ×3 (01:22→21:03)
[2022-09-25 02:06] LABS: VENOUS BASE EXCESS 2.5 mmol/L (-2-2); VENOUS O2 SATURATION 38.8 % (70-80); VENOUS PH 7.3 (7.310-7.410)
[2022-09-25 02:19] LABS: PH,URINE 5.5 (5.0-8.0); URINE APPEARANCE CLEAR; URINE BILIRUBIN NEGATIVE (NEGATIVE); URINE COLOR YELLOW; URINE GLUCOSE (UA) NEGATIVE (NEGATIVE); URINE KETONE NEGATIVE (NEGATIVE); URINE LEUK ESTERASE NEGATIVE (NEGATIVE); URINE NITRITE NEGATIVE (NEGATIVE); URINE PROTEIN NEGATIVE (NEGATIVE); URINE UROBILINOGEN 0.2 mg/dL (0.2-1.0)
[2022-09-25 06:40] LABS: HEMATOCRIT 35.7 % (32.4-45.2); HEMOGLOBIN 11.8 GM/dL (10.7-15.3); MCH 32.2 pg (25.7-33.7); MEAN CELL VOLUME 97.7 fl (80-96); MEAN PLT VOLUME 8.2 fl (7.5-11.1); PLATELET COUNT 312 10^3/uL (134-434); RBC 3.66 M/mm3 (3.60-5.2); RDW 20.1 % (11.6-15.6); WHITE BLOOD COUNT 7.8 K/mm3 (4.0-10.0)
[2022-09-25 07:00] LABS: ALBUMIN 3.2 g/dl (3.4-5.0); CALCIUM 9.3 mg/dL (8.5-10.1)
[2022-09-25 07:01] LABS: BLOOD UREA NITROGEN 15.4 mg/dL (7-18)
[2022-09-25 07:03] LABS: BILIRUBIN,TOTAL 0.5 mg/dL (0.2-1); CREATININE 0.8 mg/dL (0.55-1.3)
[2022-09-25 09:10] LABS: ANISOCYTOSIS 0; MACROCYTOSIS 1+; OVALOCYTE 0
[2022-09-25] MEDS: FLUTICASONE/UMECLIDIN/VILANTER(100-62.5-25 TRELEGY ELLIPTA) INAHLER IH SCH (10:19)
[2022-09-25] MEDS: FUROSEMIDE 40 MG/4 ML INJECTABLE VIAL IVPUSH SCH (16:20)
[2022-09-25] MEDS: ASPIRIN COATED 81 MG TABLET.EC PO SCH (18:53)
[2022-09-26] MEDS ORDERED: dilTIAZem HCL 50 MG/10 ML - 10 ML VIAL IVPUSH ONE ×4 (03:07→11:40)
[2022-09-26] MEDS ORDERED: dilTIAZem HCL 25 MG/5 ML - 5 ML VIAL IVPUSH ONE ×2 (08:15→12:15)
[2022-09-26] MEDS: FLUTICASONE/UMECLIDIN/VILANTER(100-62.5-25 TRELEGY ELLIPTA) INAHLER IH SCH (09:44)
[2022-09-26] MEDS: APIXABAN 5 MG TABLET PO SCH ×2 (09:45→21:14)
[2022-09-26] MEDS: ASPIRIN COATED 81 MG TABLET.EC PO SCH ×2 (09:45→09:53)
[2022-09-26] MEDS: FUROSEMIDE 40 MG/4 ML INJECTABLE VIAL IVPUSH SCH (09:45)
[2022-09-26] MEDS: ATENOLOL 25 MG TABLET (FP) PO SCH (09:45)
[2022-09-26 10:57] LABS: BASO % 0.5 % (0-2.0); EOS % 0.9 % (0-4.5); HEMATOCRIT 35.5 % (32.4-45.2); HEMOGLOBIN 11.8 GM/dL (10.7-15.3); LYMPH % 11.7 % (8-40); MCH 32.3 pg (25.7-33.7); MCHC 33.1 g/dl (32.0-36.0); MEAN CELL VOLUME 97.5 fl (80-96); MEAN PLT VOLUME 7.8 fl (7.5-11.1); MONO % 9.9 % (3.8-10.2); PLATELET COUNT 356 10^3/uL (134-434); RBC 3.64 M/mm3 (3.60-5.2); RDW 20.6 % (11.6-15.6); WHITE BLOOD COUNT 11.3 K/mm3 (4.0-10.0)
[2022-09-26 11:20] LABS: BLOOD UREA NITROGEN 20.5 mg/dL (7-18); CALCIUM 9.2 mg/dL (8.5-10.1)
[2022-09-26 11:22] LABS: ALBUMIN 3.2 g/dl (3.4-5.0)
[2022-09-26 11:23] LABS: CREATININE 0.8 mg/dL (0.55-1.3); PHOSPHOROUS 2.8 mg/dL (2.5-4.9)
[2022-09-26 11:26] LABS: BILIRUBIN,TOTAL 0.6 mg/dL (0.2-1); TOT PROT 6.1 g/dl (6.4-8.2)
[2022-09-26] MEDS ORDERED: guaiFENesin 200 MG/10 ML 10 ML UNIT-DOSE CUPS PO PRN (19:22)
[2022-09-26] MEDS: ATORVASTATIN CA 10 MG TABLET (FP) PO SCH (21:14)
[2022-09-26] MEDS: GABAPENTIN 100 MG CAPSULE PO SCH (21:14)
[2022-09-26] MEDS: LIDOCAINE PATCH REMOVAL MC SCH (21:17)
[2022-09-27] MEDS: GABAPENTIN 100 MG CAPSULE PO SCH ×3 (06:48→21:38)
[2022-09-27] MEDS: FUROSEMIDE 40 MG/4 ML INJECTABLE VIAL IVPUSH SCH (09:39)
[2022-09-27] MEDS: LIDOCAINE 5% TOPICAL PATCH TP SCH (09:39)
[2022-09-27] MEDS: APIXABAN 5 MG TABLET PO SCH ×2 (09:40→21:38)
[2022-09-27] MEDS: PANTOPRAZOLE 20 MG TABLET PO SCH (09:40)
[2022-09-27] MEDS: ATENOLOL 25 MG TABLET (FP) PO SCH (09:40)
[2022-09-27] MEDS: FLUTICASONE/UMECLIDIN/VILANTER(100-62.5-25 TRELEGY ELLIPTA) INAHLER IH SCH (09:46)
[2022-09-27] MEDS: ATORVASTATIN CA 10 MG TABLET (FP) PO SCH (21:38)
[2022-09-27] MEDS: MELATONIN 5 MG TABLETS PO PRN (22:01)
[2022-09-27] MEDS: LIDOCAINE PATCH REMOVAL MC SCH (22:28)
[2022-09-28] MEDS: GABAPENTIN 100 MG CAPSULE PO SCH ×3 (06:19→21:38)
[2022-09-28 08:15] LABS: CALCIUM 9.2 mg/dL (8.5-10.1)
[2022-09-28 08:17] LABS: BLOOD UREA NITROGEN 21.9 mg/dL (7-18); MAGNESIUM 1.9 mg/dL (1.8-2.4)
[2022-09-28] MEDS: PANTOPRAZOLE 20 MG TABLET PO SCH (09:18)
[2022-09-28] MEDS: LIDOCAINE 5% TOPICAL PATCH TP SCH (09:18)
[2022-09-28] MEDS: FLUTICASONE/UMECLIDIN/VILANTER(100-62.5-25 TRELEGY ELLIPTA) INAHLER IH SCH (09:18)
[2022-09-28] MEDS: ATENOLOL 25 MG TABLET (FP) PO SCH (09:18)
[2022-09-28] MEDS: FUROSEMIDE 40 MG/4 ML INJECTABLE VIAL IVPUSH SCH (09:18)
[2022-09-28] MEDS: APIXABAN 5 MG TABLET PO SCH ×2 (09:18→21:39)
[2022-09-28] MEDS ORDERED: FLUCONAZOLE 150 MG TABLET PO ONE (13:00)
[2022-09-28] MEDS ORDERED: ALBUTEROL SO4 HFA INHALER IH PRN (13:41)
[2022-09-28] MEDS: ALBUTEROL SO4 2.5/IPRATROPIUM 0.5 INH SOL 3 ML VIAL.NEB. NEB SCH ×2 (14:30→20:16)
[2022-09-28] MEDS: ATORVASTATIN CA 10 MG TABLET (FP) PO SCH (21:38)
[2022-09-28] MEDS: MELATONIN 5 MG TABLETS PO PRN (21:39)
[2022-09-28] MEDS: LIDOCAINE PATCH REMOVAL MC SCH (21:46)
[2022-09-29] MEDS: GABAPENTIN 100 MG CAPSULE PO SCH (05:54)
[2022-09-29 06:51] VITALS: RESP 18
[2022-09-29] MEDS: ALBUTEROL SO4 2.5/IPRATROPIUM 0.5 INH SOL 3 ML VIAL.NEB. NEB SCH (08:00)
[2022-09-29 09:01] VITALS: BP 116/77; PULSE 102; TEMP 97.8
[2022-09-29] MEDS ORDERED: FUROSEMIDE 40 MG TABLET (FP) PO SCH (10:00)
[2022-09-29] MEDS: FLUTICASONE/UMECLIDIN/VILANTER(100-62.5-25 TRELEGY ELLIPTA) INAHLER IH SCH (10:20)
[2022-09-29] MEDS: ATENOLOL 25 MG TABLET (FP) PO SCH (10:20)
[2022-09-29] MEDS: PANTOPRAZOLE 20 MG TABLET PO SCH (10:20)
[2022-09-29] MEDS: APIXABAN 5 MG TABLET PO SCH (10:20)
[2022-09-29] MEDS: LIDOCAINE 5% TOPICAL PATCH TP SCH (10:21)
== END 2022-09-29 11:05 | disposition home or self-care (01) | DRG 291 ==
LOC: JER 16:27 → JERBED 16:59 → J4W 09-25 15:11
PROVIDERS: ADMIT Internal Medicine; ATTEND Internal Medicine
DX: I11.0 Hypertensive heart disease with heart failure (principal); I50.33 Acute on chronic diastolic (congestive) heart failure; J96.21 Acute and chronic respiratory failure with hypoxia; I24.8 Other forms of acute ischemic heart disease; J90 Pleural effusion, not elsewhere classified; J44.9 Chronic obstructive pulmonary disease, unspecified; I48.91 Unspecified atrial fibrillation; E04.1 Nontoxic single thyroid nodule; M54.50 Low back pain, unspecified; K21.9 Gastro-esophageal reflux disease without esophagitis; E78.5 Hyperlipidemia, unspecified; D64.9 Anemia, unspecified; M54.30 Sciatica, unspecified side; M54.16 Radiculopathy, lumbar region; J37.0 Chronic laryngitis
CPT/HCPCS: 0241U-QW; 36415; 71045-TC-FY; 71275-TC; 80048; 80053; 81003; 82550; 82803; 83036; 83605; 83735; 83880; 84100; 84484; 85025; 85610; 85730; 87040; 87077; 87086; 93005; 93010; 94640; 94660; 97116-GP; 97162-GP; 99285-25; Q9967

== ENCOUNTER 2022-10-06 12:22 | Inpatient (IN) | payer BC ==
[2022-10-06 12:31] VITALS: BMI 27.1
[2022-10-06] MEDS ORDERED: MAGNESIUM SULF 50% (8.12 MEQ/2 ML-1 GM VIAL) IVPB ONE (13:12)
[2022-10-06] MEDS ORDERED: methylPREDNISolone NA SUCC 125 MG/2 ML VIAL IVPUSH ONE (13:12)
[2022-10-06 13:49] LABS: BASO % 0.6 % (0-2.0); EOS % 1.8 % (0-4.5); HEMATOCRIT 35.6 % (32.4-45.2); LYMPH % 9.6 % (8-40); MCH 32.5 pg (25.7-33.7); MCHC 33.5 g/dl (32.0-36.0); MEAN CELL VOLUME 96.8 fl (80-96); MEAN PLT VOLUME 8.8 fl (7.5-11.1); MONO % 7.4 % (3.8-10.2); NEUT % 80.6 % (42.8-82.8); PLATELET COUNT 338 10^3/uL (134-434); RBC 3.68 M/mm3 (3.60-5.2); WHITE BLOOD COUNT 12.1 K/mm3 (4.0-10.0)
[2022-10-06 13:50] LABS: VENOUS PCO2 54.2 mmHg (38-52); VENOUS PH 7.356 (7.310-7.410)
[2022-10-06] MEDS ORDERED: methylPREDNISolone NA SUCC 125 MG/2 ML VIAL ONE (13:51)
[2022-10-06] MEDS ORDERED: MAGNESIUM SULFATE IN WATER 2 GM/50 ML IVPB IVPB ONE (13:51)
[2022-10-06 13:54] LABS: INR 1.53 (0.83-1.09); PROTHROMBIN TIME (PATIENT) 17.7 SEC (9.7-13.0)
[2022-10-06 14:12] LABS: POTASSIUM 4.3 mmol/L (3.5-5.1)
[2022-10-06 14:14] LABS: CALCIUM 8.6 mg/dL (8.5-10.1)
[2022-10-06 14:15] LABS: ALBUMIN 3.7 g/dl (3.4-5.0); BLOOD UREA NITROGEN 25.6 mg/dL (7-18)
[2022-10-06 14:18] LABS: CREATININE 2.1 mg/dL (0.55-1.3)
[2022-10-06 14:19] LABS: TOT PROT 6.6 g/dl (6.4-8.2)
[2022-10-06 14:20] LABS: BILIRUBIN,TOTAL 0.4 mg/dL (0.2-1)
[2022-10-06 14:23] LABS: N-TERMINAL BNP 5277.1 pg/ml (5-450)
[2022-10-06] MEDS ORDERED: SODIUM CHLORIDE 0.9% 500 ML INFUS.BAG IV ONE (14:36)
[2022-10-06] MEDS ORDERED: ALBUTEROL SO4 2.5/IPRATROPIUM 0.5 INH SOL 3 ML VIAL.NEB. NEB ONE (15:09)
[2022-10-06] MEDS: ALBUTEROL SO4 2.5/IPRATROPIUM 0.5 INH SOL 3 ML VIAL.NEB. NEB SCH ×4 (15:15→15:58)
[2022-10-06] MEDS ORDERED: AZITHROMYCIN IVPB 500 MG/250 ML BAG IVPB ONE (15:46)
[2022-10-06] MEDS ORDERED: PANTOPRAZOLE 40 MG TABLET PO ONE (15:46)
[2022-10-06] MEDS: AZITHROMYCIN IVPB 500 MG/250 ML BAG IVPB SCH (15:58)
[2022-10-06] MEDS: PANTOPRAZOLE 40 MG TABLET PO SCH (15:58)
[2022-10-06] MEDS ORDERED: methylPREDNISolone NA SUCC 40 MG/1 ML VIAL ONE (17:52)
[2022-10-06] MEDS: methylPREDNISolone NA SUCC 40 MG/1 ML VIAL IVPUSH SCH (18:30)
[2022-10-06] MEDS: BACLOFEN 10 MG TABLET (FP) PO SCH (23:24)
[2022-10-06] MEDS: APIXABAN 5 MG TABLET PO SCH (23:24)
[2022-10-06] MEDS: ATORVASTATIN CA 10 MG TABLET (FP) PO SCH (23:24)
[2022-10-07] MEDS ORDERED: methylPREDNISolone NA SUCC 40 MG/1 ML VIAL ONE ×2 (00:31→10:44)
[2022-10-07] MEDS: methylPREDNISolone NA SUCC 40 MG/1 ML VIAL IVPUSH SCH ×5 (00:40→23:06)
[2022-10-07 06:19] LABS: VENOUS BASE EXCESS 2.2 mmol/L (-2-2); VENOUS O2 SATURATION 72.3 % (70-80); VENOUS PCO2 41.8 mmHg (38-52); VENOUS PH 7.425 (7.310-7.410)
[2022-10-07 06:19] LABS: ARTERIAL BLD GAS O2 SATURATION 94.7 % (95-98); ARTERIAL BLOOD GAS BASE EXCESS 5.3 mmol/L (-2-2); ARTERIAL BLOOD GAS PO2 70.3 mmHg (80-100)
[2022-10-07 06:21] LABS: ALLENS TEST POSITIVE
[2022-10-07 06:22] LABS: VENT MODE ST; VENT RATE 12
[2022-10-07 07:11] LABS: BASO % 0.1 % (0-2.0); HEMATOCRIT 33.3 % (32.4-45.2); HEMOGLOBIN 11.5 GM/dL (10.7-15.3); LYMPH % 4.8 % (8-40); MCH 33.4 pg (25.7-33.7); MCHC 34.6 g/dl (32.0-36.0); MEAN CELL VOLUME 96.7 fl (80-96); MONO % 0.5 % (3.8-10.2); NEUT % 94.6 % (42.8-82.8); PLATELET COUNT 320 10^3/uL (134-434); RBC 3.44 M/mm3 (3.60-5.2); RDW 17.8 % (11.6-15.6); WHITE BLOOD COUNT 6.7 K/mm3 (4.0-10.0)
[2022-10-07 07:13] LABS: POTASSIUM 4.6 mmol/L (3.5-5.1)
[2022-10-07 07:18] LABS: CALCIUM 9.6 mg/dL (8.5-10.1)
[2022-10-07 07:19] LABS: ALBUMIN 3.8 g/dl (3.4-5.0); MAGNESIUM 2.1 mg/dL (1.8-2.4)
[2022-10-07 07:22] LABS: CREATININE 1.5 mg/dL (0.55-1.3)
[2022-10-07 07:24] LABS: BILIRUBIN,TOTAL 0.5 mg/dL (0.2-1); TOT PROT 6.5 g/dl (6.4-8.2)
[2022-10-07] MEDS ORDERED: ATENOLOL 25 MG TABLET (FP) ONE (09:02)
[2022-10-07] MEDS ORDERED: PANTOPRAZOLE 40 MG TABLET PO ONE (09:02)
[2022-10-07] MEDS ORDERED: BACLOFEN 10 MG TABLET (FP) ONE (09:02)
[2022-10-07 09:10] LABS: ANISOCYTOSIS 0; HELMET CELLS 0; HOWELL-JOLLY BODIES 0; MACROCYTOSIS 0; OVALOCYTE 0; ROULEAU 0; SICKELED CELLS 0; TARGET CELLS 0; TEAR DROP CELLS 0; TOXIC GRANULATION 0
[2022-10-07] MEDS: APIXABAN 5 MG TABLET PO SCH ×2 (09:30→22:10)
[2022-10-07] MEDS: PANTOPRAZOLE 40 MG TABLET PO SCH (09:30)
[2022-10-07] MEDS: ATENOLOL 25 MG TABLET (FP) PO SCH (09:30)
[2022-10-07] MEDS: BACLOFEN 10 MG TABLET (FP) PO SCH ×2 (09:30→22:09)
[2022-10-07] MEDS ORDERED: APIXABAN 5 MG TABLET ONE (09:33)
[2022-10-07] MEDS ORDERED: AZITHROMYCIN IVPB 500 MG/250 ML BAG IVPB ONE (10:44)
[2022-10-07] MEDS: AZITHROMYCIN IVPB 500 MG/250 ML BAG IVPB SCH (11:00)
[2022-10-07] MEDS ORDERED: DEXTROSE 5%-0.45% SALINE 1,000 ML IV SCH (11:30)
[2022-10-07 16:56] LABS: PH,URINE 5.5 (5.0-8.0); URINE APPEARANCE CLEAR; URINE BILIRUBIN NEGATIVE (NEGATIVE); URINE COLOR YELLOW; URINE GLUCOSE (UA) NEGATIVE (NEGATIVE); URINE KETONE NEGATIVE (NEGATIVE); URINE LEUK ESTERASE NEGATIVE (NEGATIVE); URINE NITRITE NEGATIVE (NEGATIVE); URINE PROTEIN NEGATIVE (NEGATIVE); URINE UROBILINOGEN 0.2 mg/dL (0.2-1.0)
[2022-10-07] MEDS: ATORVASTATIN CA 10 MG TABLET (FP) PO SCH (22:10)
[2022-10-08] MEDS: methylPREDNISolone NA SUCC 40 MG/1 ML VIAL IVPUSH SCH ×4 (06:28→21:38)
[2022-10-08 07:32] LABS: HEMATOCRIT 35.6 % (32.4-45.2); HEMOGLOBIN 12.2 GM/dL (10.7-15.3); MCH 32.9 pg (25.7-33.7); MCHC 34.3 g/dl (32.0-36.0); MEAN PLT VOLUME 8.6 fl (7.5-11.1); PLATELET COUNT 376 10^3/uL (134-434); RBC 3.71 M/mm3 (3.60-5.2); RDW 18.6 % (11.6-15.6); WHITE BLOOD COUNT 12.8 K/mm3 (4.0-10.0)
[2022-10-08 07:57] LABS: POTASSIUM 4.7 mmol/L (3.5-5.1)
[2022-10-08 08:00] LABS: CALCIUM 9.2 mg/dL (8.5-10.1)
[2022-10-08 08:01] LABS: ALBUMIN 3.7 g/dl (3.4-5.0); BLOOD UREA NITROGEN 37.5 mg/dL (7-18)
[2022-10-08 08:04] LABS: CREATININE 1.8 mg/dL (0.55-1.3)
[2022-10-08 08:06] LABS: BILIRUBIN,TOTAL 0.5 mg/dL (0.2-1); TOT PROT 6.5 g/dl (6.4-8.2)
[2022-10-08] MEDS: AZITHROMYCIN IVPB 500 MG/250 ML BAG IVPB SCH (09:30)
[2022-10-08] MEDS: APIXABAN 5 MG TABLET PO SCH ×2 (09:30→21:38)
[2022-10-08] MEDS: BACLOFEN 10 MG TABLET (FP) PO SCH ×2 (09:30→21:38)
[2022-10-08] MEDS: PANTOPRAZOLE 40 MG TABLET PO SCH (09:31)
[2022-10-08] MEDS: ATENOLOL 25 MG TABLET (FP) PO SCH (09:31)
[2022-10-08 10:17] LABS: ANISOCYTOSIS 0; HELMET CELLS 0; HOWELL-JOLLY BODIES 0; MACROCYTOSIS 0; OVALOCYTE 0; ROULEAU 0; SICKELED CELLS 0; TARGET CELLS 0; TEAR DROP CELLS 0; TOXIC GRANULATION 0
[2022-10-08] MEDS: FLUTICASONE/UMECLIDIN/VILANTER(200-62.5-25 TRELEGY ELLIPTA) INAHLER IH SCH (16:03)
[2022-10-08] MEDS: ALBUTEROL SO4 0.083% IH SOL 2.5 MG/3 ML VIAL.NEB. NEB SCH ×4 (16:12→23:13)
[2022-10-08] MEDS ORDERED: ALBUTEROL SO4 0.083% IH SOL 2.5 MG/3 ML VIAL.NEB. NEB PRN (17:49)
[2022-10-08] MEDS: ATORVASTATIN CA 10 MG TABLET (FP) PO SCH (21:38)
[2022-10-09] MEDS: ALBUTEROL SO4 0.083% IH SOL 2.5 MG/3 ML VIAL.NEB. NEB SCH ×6 (04:54→23:05)
[2022-10-09] MEDS: methylPREDNISolone NA SUCC 40 MG/1 ML VIAL IVPUSH SCH ×4 (05:41→17:14)
[2022-10-09 07:57] LABS: POTASSIUM 4.6 mmol/L (3.5-5.1)
[2022-10-09 07:58] LABS: CALCIUM 8.9 mg/dL (8.5-10.1)
[2022-10-09 07:59] LABS: BLOOD UREA NITROGEN 48.5 mg/dL (7-18)
[2022-10-09 08:02] LABS: CREATININE 1.8 mg/dL (0.55-1.3)
[2022-10-09] MEDS: AZITHROMYCIN IVPB 500 MG/250 ML BAG IVPB SCH (09:37)
[2022-10-09] MEDS: FLUTICASONE/UMECLIDIN/VILANTER(200-62.5-25 TRELEGY ELLIPTA) INAHLER IH SCH (09:38)
[2022-10-09] MEDS: APIXABAN 5 MG TABLET PO SCH ×2 (09:38→21:29)
[2022-10-09] MEDS: ATENOLOL 25 MG TABLET (FP) PO SCH (09:38)
[2022-10-09] MEDS: BACLOFEN 10 MG TABLET (FP) PO SCH ×2 (09:38→21:29)
[2022-10-09] MEDS: PANTOPRAZOLE 40 MG TABLET PO SCH (09:38)
[2022-10-09] MEDS ORDERED: NICOTINE POLACRILEX 2 MG GUM BUC PRN (09:45)
[2022-10-09] MEDS ORDERED: ACETAMINOPHEN 325 MG TABLET (FP) PO PRN (09:46)
[2022-10-09] MEDS: LIDOCAINE 5% TOPICAL PATCH TP SCH (11:00)
[2022-10-09] MEDS: ATORVASTATIN CA 10 MG TABLET (FP) PO SCH (21:29)
[2022-10-09] MEDS: LIDOCAINE PATCH REMOVAL MC SCH (22:00)
[2022-10-10] MEDS: methylPREDNISolone NA SUCC 40 MG/1 ML VIAL IVPUSH SCH ×3 (02:45→17:17)
[2022-10-10] MEDS: ALBUTEROL SO4 0.083% IH SOL 2.5 MG/3 ML VIAL.NEB. NEB SCH ×5 (04:00→20:23)
[2022-10-10] MEDS: BACLOFEN 10 MG TABLET (FP) PO SCH ×2 (10:11→21:33)
[2022-10-10] MEDS: APIXABAN 5 MG TABLET PO SCH ×2 (10:11→21:33)
[2022-10-10] MEDS: ATENOLOL 25 MG TABLET (FP) PO SCH (10:11)
[2022-10-10] MEDS: LIDOCAINE 5% TOPICAL PATCH TP SCH (10:11)
[2022-10-10] MEDS: PANTOPRAZOLE 40 MG TABLET PO SCH (10:11)
[2022-10-10] MEDS: FLUTICASONE/UMECLIDIN/VILANTER(200-62.5-25 TRELEGY ELLIPTA) INAHLER IH SCH (10:12)
[2022-10-10] MEDS: AZITHROMYCIN 500 MG TABLET PO SCH (10:12)
[2022-10-10] MEDS: ACETAMINOPHEN 325 MG TABLET (FP) PO SCH ×2 (15:29→21:34)
[2022-10-10] MEDS: ATORVASTATIN CA 10 MG TABLET (FP) PO SCH (21:33)
[2022-10-10] MEDS: LIDOCAINE PATCH REMOVAL MC SCH (21:35)
[2022-10-11] MEDS: ALBUTEROL SO4 0.083% IH SOL 2.5 MG/3 ML VIAL.NEB. NEB SCH ×3 (00:48→08:08)
[2022-10-11] MEDS: methylPREDNISolone NA SUCC 40 MG/1 ML VIAL IVPUSH SCH ×3 (01:41→18:06)
[2022-10-11 06:39] LABS: POTASSIUM 4.4 mmol/L (3.5-5.1)
[2022-10-11 06:40] LABS: CALCIUM 9.1 mg/dL (8.5-10.1)
[2022-10-11 06:44] LABS: CREATININE 1.1 mg/dL (0.55-1.3)
[2022-10-11] MEDS: LIDOCAINE 5% TOPICAL PATCH TP SCH (09:31)
[2022-10-11] MEDS: ATENOLOL 25 MG TABLET (FP) PO SCH (09:32)
[2022-10-11] MEDS: ACETAMINOPHEN 325 MG TABLET (FP) PO SCH ×2 (09:32→21:39)
[2022-10-11] MEDS: APIXABAN 5 MG TABLET PO SCH ×2 (09:32→21:38)
[2022-10-11] MEDS: FLUTICASONE/UMECLIDIN/VILANTER(200-62.5-25 TRELEGY ELLIPTA) INAHLER IH SCH (09:34)
[2022-10-11] MEDS: BACLOFEN 10 MG TABLET (FP) PO SCH ×2 (09:34→21:38)
[2022-10-11] MEDS: PANTOPRAZOLE 40 MG TABLET PO SCH (09:34)
[2022-10-11] MEDS: AZITHROMYCIN 500 MG TABLET PO SCH (10:42)
[2022-10-11] MEDS: LEVALBUTEROL HCL 0.31 MG/3 ML VIAL.NEB IH SCH ×2 (12:18→19:45)
[2022-10-11] MEDS: ATORVASTATIN CA 10 MG TABLET (FP) PO SCH (21:38)
[2022-10-11] MEDS: LIDOCAINE PATCH REMOVAL MC SCH (21:39)
[2022-10-12] MEDS: methylPREDNISolone NA SUCC 40 MG/1 ML VIAL IVPUSH SCH ×3 (01:58→17:31)
[2022-10-12] MEDS: LEVALBUTEROL HCL 0.31 MG/3 ML VIAL.NEB IH SCH ×3 (02:01→18:13)
[2022-10-12] MEDS: LIDOCAINE 5% TOPICAL PATCH TP SCH (09:18)
[2022-10-12] MEDS: ACETAMINOPHEN 325 MG TABLET (FP) PO SCH ×2 (09:18→21:38)
[2022-10-12] MEDS: ATENOLOL 25 MG TABLET (FP) PO SCH (09:18)
[2022-10-12] MEDS: PANTOPRAZOLE 40 MG TABLET PO SCH (09:19)
[2022-10-12] MEDS: BACLOFEN 10 MG TABLET (FP) PO SCH ×2 (09:19→21:38)
[2022-10-12] MEDS: APIXABAN 5 MG TABLET PO SCH ×2 (09:19→21:38)
[2022-10-12] MEDS: AZITHROMYCIN 500 MG TABLET PO SCH (09:20)
[2022-10-12] MEDS: FLUTICASONE/UMECLIDIN/VILANTER(200-62.5-25 TRELEGY ELLIPTA) INAHLER IH SCH (09:20)
[2022-10-12] MEDS: LIDOCAINE PATCH REMOVAL MC SCH (21:38)
[2022-10-12] MEDS: ATORVASTATIN CA 10 MG TABLET (FP) PO SCH (21:39)
[2022-10-13] MEDS: methylPREDNISolone NA SUCC 40 MG/1 ML VIAL IVPUSH SCH ×2 (01:01→09:27)
[2022-10-13] MEDS ORDERED: LEVALBUTEROL HCL 0.31 MG/3 ML VIAL.NEB IH SCH (03:00)
[2022-10-13 07:00] LABS: BASO % 0.1 % (0-2.0); HEMATOCRIT 40.7 % (32.4-45.2); HEMOGLOBIN 13.6 GM/dL (10.7-15.3); LYMPH % 1.5 % (8-40); MCH 32.2 pg (25.7-33.7); MCHC 33.4 g/dl (32.0-36.0); MEAN CELL VOLUME 96.4 fl (80-96); MEAN PLT VOLUME 8.7 fl (7.5-11.1); MONO % 2.4 % (3.8-10.2); PLATELET COUNT 361 10^3/uL (134-434); RBC 4.22 M/mm3 (3.60-5.2); RDW 17.6 % (11.6-15.6); WHITE BLOOD COUNT 12.8 K/mm3 (4.0-10.0)
[2022-10-13 07:07] LABS: POTASSIUM 4.8 mmol/L (3.5-5.1)
[2022-10-13] MEDS: LEVALBUTEROL HCL 0.31 MG/3 ML VIAL.NEB IH SCH ×3 (07:09→19:39)
[2022-10-13 07:10] LABS: CALCIUM 9.1 mg/dL (8.5-10.1)
[2022-10-13 07:11] LABS: ALBUMIN 3.2 g/dl (3.4-5.0); BLOOD UREA NITROGEN 44.2 mg/dL (7-18)
[2022-10-13 07:14] LABS: CREATININE 0.9 mg/dL (0.55-1.3)
[2022-10-13 07:15] LABS: TOT PROT 6.1 g/dl (6.4-8.2)
[2022-10-13 07:16] LABS: BILIRUBIN,TOTAL 0.4 mg/dL (0.2-1)
[2022-10-13] MEDS: ACETAMINOPHEN 325 MG TABLET (FP) PO SCH ×2 (09:26→21:07)
[2022-10-13] MEDS: ATENOLOL 25 MG TABLET (FP) PO SCH (09:27)
[2022-10-13] MEDS: BACLOFEN 10 MG TABLET (FP) PO SCH ×2 (09:27→21:12)
[2022-10-13] MEDS: LIDOCAINE 5% TOPICAL PATCH TP SCH (09:27)
[2022-10-13] MEDS: APIXABAN 5 MG TABLET PO SCH ×2 (09:27→21:09)
[2022-10-13] MEDS: FLUTICASONE/UMECLIDIN/VILANTER(200-62.5-25 TRELEGY ELLIPTA) INAHLER IH SCH (09:28)
[2022-10-13] MEDS: PANTOPRAZOLE 40 MG TABLET PO SCH (09:28)
[2022-10-13 10:02] LABS: ANISOCYTOSIS 0; HELMET CELLS 0; HOWELL-JOLLY BODIES 0; MACROCYTOSIS 0; OVALOCYTE 0; ROULEAU 0; SICKELED CELLS 0; TARGET CELLS 0; TEAR DROP CELLS 0; TOXIC GRANULATION 0
[2022-10-13] MEDS: predniSONE 20 MG TABLET (UD) PO SCH (14:48)
[2022-10-13] MEDS: ATORVASTATIN CA 10 MG TABLET (FP) PO SCH (21:09)
[2022-10-13] MEDS: LIDOCAINE PATCH REMOVAL MC SCH (21:10)
[2022-10-13] MEDS ORDERED: methylPREDNISolone NA SUCC 40 MG/1 ML VIAL IVPUSH SCH (22:00)
[2022-10-14 07:09] LABS: POTASSIUM 4.5 mmol/L (3.5-5.1)
[2022-10-14 07:11] LABS: CALCIUM 9.1 mg/dL (8.5-10.1); HEMOGLOBIN 13.9 GM/dL (10.7-15.3); MCH 32.9 pg (25.7-33.7); MCHC 33.9 g/dl (32.0-36.0); MEAN CELL VOLUME 97.2 fl (80-96); MEAN PLT VOLUME 8.2 fl (7.5-11.1); PLATELET COUNT 301 10^3/uL (134-434); RBC 4.22 M/mm3 (3.60-5.2); RDW 17.3 % (11.6-15.6); WHITE BLOOD COUNT 12.8 K/mm3 (4.0-10.0)
[2022-10-14 07:14] LABS: CREATININE 0.8 mg/dL (0.55-1.3)
[2022-10-14] MEDS: LEVALBUTEROL HCL 0.31 MG/3 ML VIAL.NEB IH SCH ×2 (07:15→14:13)
[2022-10-14 07:16] LABS: BILIRUBIN,TOTAL 0.4 mg/dL (0.2-1); TOT PROT 5.6 g/dl (6.4-8.2)
[2022-10-14] MEDS: BACLOFEN 10 MG TABLET (FP) PO SCH (10:17)
[2022-10-14] MEDS: ATENOLOL 25 MG TABLET (FP) PO SCH (10:17)
[2022-10-14] MEDS: ACETAMINOPHEN 325 MG TABLET (FP) PO SCH (10:17)
[2022-10-14] MEDS: APIXABAN 5 MG TABLET PO SCH (10:17)
[2022-10-14] MEDS: PANTOPRAZOLE 40 MG TABLET PO SCH (10:18)
[2022-10-14] MEDS: predniSONE 20 MG TABLET (UD) PO SCH (10:18)
[2022-10-14 10:30] LABS: ANISOCYTOSIS 1+; MACROCYTOSIS 1+; OVALOCYTE 2+; TEAR DROP CELLS 1+; TOXIC GRANULATION 2+
[2022-10-14] MEDS: LIDOCAINE 5% TOPICAL PATCH TP SCH (11:05)
[2022-10-14] MEDS: FLUTICASONE/UMECLIDIN/VILANTER(200-62.5-25 TRELEGY ELLIPTA) INAHLER IH SCH (11:06)
[2022-10-14 11:14] VITALS: RESP 18
[2022-10-14 15:28] VITALS: PULSE 85
[2022-10-14 17:59] VITALS: BP 157/81; TEMP 96.8
== END 2022-10-14 18:32 | disposition home or self-care (01) | DRG 189 ==
LOC: JER 12:22 → JERBED 14:45 → OBSVTOIN 14:57 → J4S 10-07 17:11
PROVIDERS: ADMIT Internal Medicine; ATTEND Internal Medicine
DX: J96.21 Acute and chronic respiratory failure with hypoxia (principal); J44.1 Chronic obstructive pulmonary disease with (acute) exacerbation; N17.9 Acute kidney failure, unspecified; K21.9 Gastro-esophageal reflux disease without esophagitis; I48.91 Unspecified atrial fibrillation; Z99.81 Dependence on supplemental oxygen; M54.30 Sciatica, unspecified side; M54.50 Low back pain, unspecified; I25.10 Atherosclerotic heart disease of native coronary artery without angina pectoris; R55 Syncope and collapse; I25.2 Old myocardial infarction; D64.9 Anemia, unspecified; I11.0 Hypertensive heart disease with heart failure; I50.9 Heart failure, unspecified
CPT/HCPCS: 0241U-QW; 36415; 36600; 70450-TC; 71045-TC-FY; 72125-TC; 80048; 80053; 81003; 82550; 82803; 83735; 83880; 84484; 85025; 85610; 85730; 87086; 93005; 93010; 94640; 94660; 97116-GP; 97161-GP; 99285-25; G0378; J0475

== ENCOUNTER 2022-11-09 15:51 | Inpatient (IN) | payer BC, OTHER ==
[2022-11-09 16:09] VITALS: BMI 43.3
[2022-11-09] MEDS ORDERED: ACETAMINOPHEN 1000 MG/100 ML BAG IVPB ONE (17:22)
[2022-11-09] MEDS: ALBUTEROL SO4 2.5/IPRATROPIUM 0.5 INH SOL 3 ML VIAL.NEB. NEB SCH ×2 (17:23→17:24)
[2022-11-09 17:30] LABS: EOS % 0.3 % (0-4.5); HEMATOCRIT 29.1 % (32.4-45.2); HEMOGLOBIN 9.8 GM/dL (10.7-15.3); LYMPH % 17.8 % (8-40); MCH 32.2 pg (25.7-33.7); MCHC 33.5 g/dl (32.0-36.0); MEAN CELL VOLUME 96.1 fl (80-96); MONO % 9.8 % (3.8-10.2); NEUT % 71.1 % (42.8-82.8); PLATELET COUNT 254 10^3/uL (134-434); RBC 3.03 M/mm3 (3.60-5.2); RDW 17.2 % (11.6-15.6)
[2022-11-09 17:41] LABS: EPI CELLS 3 /uL (0-25.1); HYALINE CASTS 73 /uL (0-3.1); PH,URINE 7.5 (5.0-8.0); URINE APPEARANCE CLOUDY; URINE BILIRUBIN NEGATIVE (NEGATIVE); URINE COLOR RED; URINE GLUCOSE (UA) NEGATIVE (NEGATIVE); URINE KETONE NEGATIVE (NEGATIVE); URINE LEUK ESTERASE 2+ (NEGATIVE); URINE NITRITE NEGATIVE (NEGATIVE); URINE PROTEIN 3+ (NEGATIVE); URINE RBC 21777 /uL (0-23.9); URINE UROBILINOGEN 0.2 mg/dL (0.2-1.0); URINE WBC 54 /uL (0-25.8)
[2022-11-09 17:44] LABS: INR 2.16 (0.83-1.09); PROTHROMBIN TIME (PATIENT) 24.9 SEC (9.7-13.0)
[2022-11-09 17:52] LABS: ACTIVATED PTT 31.6 SECONDS (25.2-36.5)
[2022-11-09 18:02] LABS: CALCIUM 9.6 mg/dL (8.5-10.1)
[2022-11-09 18:03] LABS: ALBUMIN 3.1 g/dl (3.4-5.0); ANISOCYTOSIS 2+; BLOOD UREA NITROGEN 35.8 mg/dL (7-18); MACROCYTOSIS 0; MAGNESIUM 1.2 mg/dL (1.8-2.4)
[2022-11-09 18:06] LABS: CREATININE 1.3 mg/dL (0.55-1.3)
[2022-11-09 18:07] LABS: BILIRUBIN,TOTAL 0.7 mg/dL (0.2-1); TOT PROT 5.6 g/dl (6.4-8.2)
[2022-11-09] MEDS ORDERED: SODIUM CHLORIDE 0.9% 500 ML INFUS.BAG IV ONE (18:15)
[2022-11-09] MEDS ORDERED: MAGNESIUM 1GM/D5W - 1 GM/100 ML IVPB IVPB ONE (18:20)
[2022-11-09] MEDS ORDERED: ALBUTEROL SO4 2.5/IPRATROPIUM 0.5 INH SOL 3 ML VIAL.NEB. NEB ONE (18:20)
[2022-11-09] MEDS ORDERED: AZITHROMYCIN IVPB 500 MG in DEXTROSE 5%-WATER - 250 ML IVPB ONE (20:13)
[2022-11-09] MEDS ORDERED: methylPREDNISolone NA SUCC 125 MG/2 ML VIAL IVPB ONE (20:17)
[2022-11-09] MEDS ORDERED: CEFTRIAXONE 1,000 MG in DEXTROSE 5%-WATER - 50 ML IVPB ONE (20:17)
[2022-11-09] MEDS ORDERED: ACETAMINOPHEN 325 MG TABLET (FP) PO PRN (20:26)
[2022-11-09] MEDS ORDERED: DOCUSATE SODIUM 100 MG CAPSULE (FP) PO PRN (20:26)
[2022-11-09] MEDS ORDERED: MAGNESIUM OXIDE 400 MG TABLET (FP) PO ONE (20:35)
[2022-11-09] MEDS ORDERED: NICOTINE POLACRILEX 4 MG GUM BUC PRN (20:41)
[2022-11-09] MEDS ORDERED: guaiFENesin 200 MG/10 ML 10 ML UNIT-DOSE CUPS PO PRN (20:41)
[2022-11-09] MEDS ORDERED: LEVALBUTEROL HCL 0.31 MG/3 ML VIAL.NEB IH SCH (20:45)
[2022-11-09] MEDS ORDERED: BACLOFEN 10 MG TABLET (FP) ONE (21:23)
[2022-11-09] MEDS ORDERED: ATORVASTATIN CA 10 MG TABLET (FP) ONE (21:23)
[2022-11-09] MEDS ORDERED: GABAPENTIN 100 MG CAPSULE ONE (21:23)
[2022-11-09] MEDS ORDERED: LEVALBUTEROL HCL 0.63 MG/3 ML VIAL.NEB. IH ONE (21:23)
[2022-11-09 21:24] LABS: PHOSPHOROUS 3.7 mg/dL (2.5-4.9)
[2022-11-09] MEDS ORDERED: methylPREDNISolone NA SUCC 125 MG/2 ML VIAL ONE (21:24)
[2022-11-09] MEDS ORDERED: CEFTRIAXONE 1 GM/50 ML BAG ONE (21:24)
[2022-11-09] MEDS ORDERED: AZITHROMYCIN IVPB 500 MG/250 ML BAG IVPB ONE (21:24)
[2022-11-09] MEDS ORDERED: MAGNESIUM OXIDE 400 MG TABLET (FP) ONE (21:37)
[2022-11-09] MEDS: ATORVASTATIN CA 10 MG TABLET (FP) PO SCH (21:41)
[2022-11-09] MEDS: GABAPENTIN 100 MG CAPSULE PO SCH (21:41)
[2022-11-09] MEDS: BACLOFEN 10 MG TABLET (FP) PO SCH (21:41)
[2022-11-09] MEDS: SODIUM CHLORIDE 1,000 ML IV SCH ×2 (21:41→23:39)
[2022-11-09 21:42] LABS: RETICULOCYTES 3.12 % (0.5-1.5)
[2022-11-09] MEDS: LIDOCAINE PATCH REMOVAL MC SCH (23:00)
[2022-11-09] MEDS ORDERED: GABAPENTIN 100 MG CAPSULE PO ONE (23:30)
[2022-11-09] MEDS ORDERED: ACETAMINOPHEN 1000 MG/100 ML BAG IVPB PRN (23:36)
[2022-11-10] MEDS: LIDOCAINE 5% TOPICAL PATCH TP SCH ×4 (00:21→21:45)
[2022-11-10 02:55] LABS: HEMATOCRIT 28.6 % (32.4-45.2); HEMOGLOBIN 9.7 GM/dL (10.7-15.3); MCH 33.1 pg (25.7-33.7); MCHC 34.1 g/dl (32.0-36.0); MEAN CELL VOLUME 97.2 fl (80-96); PLATELET COUNT 224 10^3/uL (134-434); RBC 2.94 M/mm3 (3.60-5.2); RDW 16.8 % (11.6-15.6); WHITE BLOOD COUNT 7.7 K/mm3 (4.0-10.0)
[2022-11-10 03:59] LABS: POTASSIUM 3.8 mmol/L (3.5-5.1)
[2022-11-10 04:00] LABS: CALCIUM 8.9 mg/dL (8.5-10.1)
[2022-11-10 04:01] LABS: BLOOD UREA NITROGEN 33.9 mg/dL (7-18)
[2022-11-10 04:04] LABS: CREATININE 1.2 mg/dL (0.55-1.3)
[2022-11-10] MEDS: GABAPENTIN 100 MG CAPSULE PO SCH ×3 (06:18→21:46)
[2022-11-10 07:01] LABS: ANISOCYTOSIS 1+; MACROCYTOSIS 0; OVALOCYTE 2+; TARGET CELLS 1+
[2022-11-10] MEDS: LEVALBUTEROL HCL 0.31 MG/3 ML VIAL.NEB IH SCH ×3 (07:45→19:50)
[2022-11-10] MEDS: methylPREDNISolone NA SUCC 40 MG/1 ML VIAL IVPUSH SCH ×2 (09:32→18:07)
[2022-11-10] MEDS: CEFTRIAXONE 1 GM in DEXTROSE 5%-WATER - 50 ML IVPB SCH (09:34)
[2022-11-10] MEDS: FLUTICASONE/UMECLIDIN/VILANTER(100-62.5-25 TRELEGY ELLIPTA) INAHLER IH SCH (09:37)
[2022-11-10] MEDS: LIDOCAINE PATCH REMOVAL MC SCH ×3 (09:39→21:46)
[2022-11-10] MEDS: PANTOPRAZOLE 20 MG TABLET PO SCH (09:40)
[2022-11-10] MEDS: BACLOFEN 10 MG TABLET (FP) PO SCH ×2 (09:40→21:46)
[2022-11-10] MEDS ORDERED: LIDOCAINE 5% TOPICAL PATCH TP SCH (10:00)
[2022-11-10] MEDS: TORSEMIDE 20 MG TABLET (FP) PO SCH (10:02)
[2022-11-10] MEDS: AZITHROMYCIN IVPB 500 MG/250 ML BAG IVPB SCH (15:57)
[2022-11-10] MEDS: SODIUM CHLORIDE 1,000 ML IV SCH (21:43)
[2022-11-10] MEDS: ATORVASTATIN CA 10 MG TABLET (FP) PO SCH (21:46)
[2022-11-10] MEDS ORDERED: ACETAMINOPHEN 325 MG TABLET (FP) PO PRN (23:30)
[2022-11-11] MEDS: methylPREDNISolone NA SUCC 40 MG/1 ML VIAL IVPUSH SCH ×3 (01:32→17:05)
[2022-11-11] MEDS: GABAPENTIN 100 MG CAPSULE PO SCH ×3 (06:23→21:27)
[2022-11-11] MEDS: LEVALBUTEROL HCL 0.31 MG/3 ML VIAL.NEB IH SCH ×3 (07:38→20:20)
[2022-11-11] MEDS: PANTOPRAZOLE 20 MG TABLET PO SCH (10:32)
[2022-11-11] MEDS: TORSEMIDE 20 MG TABLET (FP) PO SCH (10:32)
[2022-11-11] MEDS: BACLOFEN 10 MG TABLET (FP) PO SCH ×2 (10:33→21:27)
[2022-11-11] MEDS: LIDOCAINE 5% TOPICAL PATCH TP SCH ×3 (10:33→21:27)
[2022-11-11] MEDS: CEFTRIAXONE 1 GM in DEXTROSE 5%-WATER - 50 ML IVPB SCH (10:34)
[2022-11-11] MEDS: LIDOCAINE PATCH REMOVAL MC SCH ×3 (10:34→21:28)
[2022-11-11] MEDS ORDERED: ATENOLOL 25 MG TABLET (FP) PO ONE (10:45)
[2022-11-11] MEDS: AZITHROMYCIN IVPB 500 MG/250 ML BAG IVPB SCH (10:57)
[2022-11-11] MEDS: FLUTICASONE/UMECLIDIN/VILANTER(100-62.5-25 TRELEGY ELLIPTA) INAHLER IH SCH ×2 (10:57→15:13)
[2022-11-11] MEDS: ATORVASTATIN CA 10 MG TABLET (FP) PO SCH (21:27)
[2022-11-12] MEDS: methylPREDNISolone NA SUCC 40 MG/1 ML VIAL IVPUSH SCH ×3 (01:53→22:03)
[2022-11-12] MEDS: GABAPENTIN 100 MG CAPSULE PO SCH ×3 (05:29→22:03)
[2022-11-12] MEDS: LEVALBUTEROL HCL 0.31 MG/3 ML VIAL.NEB IH SCH ×3 (07:44→20:10)
[2022-11-12 08:10] LABS: ALBUMIN 3.2 g/dl (3.4-5.0); CALCIUM 9.3 mg/dL (8.5-10.1); HEMATOCRIT 27.3 % (32.4-45.2); HEMOGLOBIN 9.3 GM/dL (10.7-15.3); MCH 33.5 pg (25.7-33.7); MCHC 34.2 g/dl (32.0-36.0); MEAN CELL VOLUME 97.9 fl (80-96); MEAN PLT VOLUME 8.7 fl (7.5-11.1); PLATELET COUNT 291 10^3/uL (134-434); RBC 2.79 M/mm3 (3.60-5.2); RDW 17.6 % (11.6-15.6); WHITE BLOOD COUNT 9.2 K/mm3 (4.0-10.0)
[2022-11-12 08:13] LABS: CREATININE 1.2 mg/dL (0.55-1.3)
[2022-11-12 08:15] LABS: BILIRUBIN,TOTAL 0.4 mg/dL (0.2-1)
[2022-11-12 09:07] LABS: ANISOCYTOSIS 0; HELMET CELLS 0; HOWELL-JOLLY BODIES 0; MACROCYTOSIS 0; OVALOCYTE 0; ROULEAU 0; SICKELED CELLS 0; TARGET CELLS 0; TEAR DROP CELLS 0; TOXIC GRANULATION 0
[2022-11-12] MEDS: ATENOLOL 25 MG TABLET (FP) PO SCH (09:58)
[2022-11-12] MEDS: TORSEMIDE 20 MG TABLET (FP) PO SCH (09:58)
[2022-11-12] MEDS: PANTOPRAZOLE 20 MG TABLET PO SCH (09:59)
[2022-11-12] MEDS: BACLOFEN 10 MG TABLET (FP) PO SCH ×2 (09:59→22:03)
[2022-11-12] MEDS: LIDOCAINE PATCH REMOVAL MC SCH ×3 (09:59→22:04)
[2022-11-12] MEDS: CEFTRIAXONE 1 GM in DEXTROSE 5%-WATER - 50 ML IVPB SCH (10:00)
[2022-11-12] MEDS: FLUTICASONE/UMECLIDIN/VILANTER(100-62.5-25 TRELEGY ELLIPTA) INAHLER IH SCH (10:02)
[2022-11-12] MEDS: LIDOCAINE 5% TOPICAL PATCH TP SCH ×3 (10:02→22:04)
[2022-11-12] MEDS: AZITHROMYCIN IVPB 500 MG/250 ML BAG IVPB SCH (10:03)
[2022-11-12] MEDS ORDERED: methylPREDNISolone NA SUCC 40 MG/1 ML VIAL IVPUSH SCH (14:15)
[2022-11-12] MEDS: FUROSEMIDE 40 MG/4 ML INJECTABLE VIAL IVPUSH SCH (14:43)
[2022-11-12] MEDS: APIXABAN 5 MG TABLET PO SCH (22:03)
[2022-11-12] MEDS: ATORVASTATIN CA 10 MG TABLET (FP) PO SCH (22:03)
[2022-11-13] MEDS: GABAPENTIN 100 MG CAPSULE PO SCH ×3 (06:12→21:45)
[2022-11-13] MEDS: LEVALBUTEROL HCL 0.31 MG/3 ML VIAL.NEB IH SCH ×3 (07:45→20:14)
[2022-11-13] MEDS: CEFTRIAXONE 1 GM in DEXTROSE 5%-WATER - 50 ML IVPB SCH (10:14)
[2022-11-13] MEDS: AZITHROMYCIN IVPB 500 MG/250 ML BAG IVPB SCH (10:14)
[2022-11-13] MEDS: BACLOFEN 10 MG TABLET (FP) PO SCH ×2 (10:15→21:45)
[2022-11-13] MEDS: ATENOLOL 25 MG TABLET (FP) PO SCH (10:15)
[2022-11-13] MEDS: PANTOPRAZOLE 20 MG TABLET PO SCH (10:15)
[2022-11-13] MEDS: FUROSEMIDE 40 MG/4 ML INJECTABLE VIAL IVPUSH SCH (10:15)
[2022-11-13] MEDS: methylPREDNISolone NA SUCC 40 MG/1 ML VIAL IVPUSH SCH ×3 (10:15→22:46)
[2022-11-13] MEDS: LIDOCAINE 5% TOPICAL PATCH TP SCH ×3 (10:15→21:52)
[2022-11-13] MEDS: APIXABAN 5 MG TABLET PO SCH ×2 (10:15→21:45)
[2022-11-13] MEDS: FLUTICASONE/UMECLIDIN/VILANTER(100-62.5-25 TRELEGY ELLIPTA) INAHLER IH SCH (10:17)
[2022-11-13] MEDS: LIDOCAINE PATCH REMOVAL MC SCH (10:18)
[2022-11-13] MEDS: ATORVASTATIN CA 10 MG TABLET (FP) PO SCH (21:45)
[2022-11-14] MEDS: MELATONIN 5 MG TABLETS PO PRN ×2 (02:03→21:22)
[2022-11-14] MEDS: GABAPENTIN 100 MG CAPSULE PO SCH ×3 (06:00→21:23)
[2022-11-14] MEDS: LEVALBUTEROL HCL 0.31 MG/3 ML VIAL.NEB IH SCH ×3 (07:38→20:21)
[2022-11-14 08:45] LABS: HEMATOCRIT 30.9 % (32.4-45.2); HEMOGLOBIN 10.7 GM/dL (10.7-15.3); MCH 33.2 pg (25.7-33.7); MCHC 34.4 g/dl (32.0-36.0); MEAN CELL VOLUME 96.4 fl (80-96); MEAN PLT VOLUME 8.3 fl (7.5-11.1); PLATELET COUNT 424 10^3/uL (134-434); RBC 3.21 M/mm3 (3.60-5.2); RDW 17.9 % (11.6-15.6)
[2022-11-14 09:07] LABS: POTASSIUM 4.2 mmol/L (3.5-5.1)
[2022-11-14 09:10] LABS: CALCIUM 9.2 mg/dL (8.5-10.1)
[2022-11-14 09:11] LABS: ALBUMIN 3.4 g/dl (3.4-5.0); BLOOD UREA NITROGEN 52.4 mg/dL (7-18)
[2022-11-14 09:14] LABS: CREATININE 1.2 mg/dL (0.55-1.3)
[2022-11-14 09:16] LABS: BILIRUBIN,TOTAL 0.4 mg/dL (0.2-1); TOT PROT 6.4 g/dl (6.4-8.2)
[2022-11-14 09:47] LABS: ANISOCYTOSIS 0; HELMET CELLS 0; HOWELL-JOLLY BODIES 0; MACROCYTOSIS 0; OVALOCYTE 0; ROULEAU 0; SICKELED CELLS 0; TARGET CELLS 0; TEAR DROP CELLS 0; TOXIC GRANULATION 0
[2022-11-14 10:41] VITALS: RESP 20
[2022-11-14] MEDS: BACLOFEN 10 MG TABLET (FP) PO SCH ×2 (10:47→21:23)
[2022-11-14] MEDS: FUROSEMIDE 40 MG TABLET (FP) PO SCH (10:47)
[2022-11-14] MEDS: AZITHROMYCIN 250 MG TABLET PO SCH (10:47)
[2022-11-14] MEDS: PANTOPRAZOLE 20 MG TABLET PO SCH (10:47)
[2022-11-14] MEDS: ATENOLOL 25 MG TABLET (FP) PO SCH (10:47)
[2022-11-14] MEDS: APIXABAN 5 MG TABLET PO SCH ×2 (10:48→21:23)
[2022-11-14] MEDS: LIDOCAINE 5% TOPICAL PATCH TP SCH ×2 (10:48→10:49)
[2022-11-14] MEDS: predniSONE 20 MG TABLET (UD) PO SCH ×2 (10:48→21:23)
[2022-11-14] MEDS: FLUTICASONE/UMECLIDIN/VILANTER(100-62.5-25 TRELEGY ELLIPTA) INAHLER IH SCH (10:55)
[2022-11-14] MEDS: LIDOCAINE PATCH REMOVAL MC SCH ×3 (16:27→21:26)
[2022-11-14] MEDS: ATORVASTATIN CA 10 MG TABLET (FP) PO SCH (21:23)
[2022-11-14] MEDS ORDERED: LIDOCAINE PATCH REMOVAL MC SCH (22:00)
[2022-11-15] MEDS: GABAPENTIN 100 MG CAPSULE PO SCH (06:07)
[2022-11-15] MEDS: LEVALBUTEROL HCL 0.31 MG/3 ML VIAL.NEB IH SCH (07:45)
[2022-11-15] MEDS: AZITHROMYCIN 250 MG TABLET PO SCH (09:17)
[2022-11-15] MEDS: predniSONE 20 MG TABLET (UD) PO SCH (09:18)
[2022-11-15] MEDS: APIXABAN 5 MG TABLET PO SCH (09:18)
[2022-11-15] MEDS: FUROSEMIDE 40 MG TABLET (FP) PO SCH (09:18)
[2022-11-15] MEDS: PANTOPRAZOLE 20 MG TABLET PO SCH (09:18)
[2022-11-15] MEDS: LIDOCAINE 5% TOPICAL PATCH TP SCH (09:18)
[2022-11-15] MEDS: ATENOLOL 25 MG TABLET (FP) PO SCH (09:18)
[2022-11-15] MEDS: BACLOFEN 10 MG TABLET (FP) PO SCH (09:18)
[2022-11-15] MEDS: FLUTICASONE/UMECLIDIN/VILANTER(100-62.5-25 TRELEGY ELLIPTA) INAHLER IH SCH (09:23)
[2022-11-15 09:27] VITALS: BP 112/79; PULSE 100; TEMP 98
[2022-11-15] MEDS ORDERED: LIDOCAINE 5% TOPICAL PATCH TP SCH ×2 (10:00)
== END 2022-11-15 12:44 | disposition home or self-care (01) | DRG 192 ==
LOC: JER 15:51 → JERBED 17:11 → J8W 22:10
PROVIDERS: ADMIT Internal Medicine; ATTEND Internal Medicine
DX: J44.1 Chronic obstructive pulmonary disease with (acute) exacerbation (principal); I25.10 Atherosclerotic heart disease of native coronary artery without angina pectoris; E78.5 Hyperlipidemia, unspecified; I48.91 Unspecified atrial fibrillation; E83.42 Hypomagnesemia; K21.9 Gastro-esophageal reflux disease without esophagitis; D64.9 Anemia, unspecified; I11.0 Hypertensive heart disease with heart failure; I50.9 Heart failure, unspecified; M54.50 Low back pain, unspecified; M54.30 Sciatica, unspecified side; R31.0 Gross hematuria; Z99.81 Dependence on supplemental oxygen
CPT/HCPCS: 0241U-QW; 36415; 71045-TC-FY; 74176-TC; 76775-TC; 76856-TC; 80048; 80053; 81003; 82272; 82550; 82728; 82962; 83540; 83550; 83615; 83735; 84100; 84443; 84484; 85025; 85045; 85610; 85730; 86850; 86900; 86901; 87086; 93005; 93010; 97116-GP; 99285-25; J0475

== ENCOUNTER 2023-03-26 17:44 | Inpatient (IN) | payer BC, OTHER ==
[2023-03-26] MEDS ORDERED: methylPREDNISolone NA SUCC 125 MG/2 ML VIAL IVPB ONE (17:50)
[2023-03-26] MEDS ORDERED: ALBUTEROL SO4 2.5/IPRATROPIUM 0.5 INH SOL 3 ML VIAL.NEB. NEB ONE (17:50)
[2023-03-26 18:17] LABS: BASO % 0.5 % (0-2.0); EOS % 0.4 % (0-4.5); HEMOGLOBIN 8.9 GM/dL (10.7-15.3); MCH 25.5 pg (25.7-33.7); MCHC 31.8 g/dl (32.0-36.0); MEAN CELL VOLUME 80.1 fl (80-96); MEAN PLT VOLUME 7.9 fl (7.5-11.1); MONO % 10.5 % (3.8-10.2); NEUT % 79.6 % (42.8-82.8); PLATELET COUNT 336 10^3/uL (134-434); RDW 16.7 % (11.6-15.6); WHITE BLOOD COUNT 11.9 K/mm3 (4.0-10.0)
[2023-03-26 18:23] LABS: ARTERIAL BLD GAS O2 SATURATION 99.7 % (95-98); ARTERIAL BLOOD GAS BASE EXCESS 12.6 mmol/L (-2-2); ARTERIAL BLOOD GAS PO2 342.6 mmHg (80-100); ARTERIAL BLOOD GAS pH 7.311 (7.350-7.450)
[2023-03-26 18:24] LABS: ALLENS TEST POSITIVE
[2023-03-26 18:35] LABS: VENOUS BASE EXCESS 11.9 mmol/L (-2-2); VENOUS O2 SATURATION 96.1 % (70-80); VENOUS PH 7.318 (7.310-7.410)
[2023-03-26 18:37] LABS: INR 2.01 (0.83-1.09); PROTHROMBIN TIME (PATIENT) 23.2 SEC (9.7-13.0)
[2023-03-26 18:40] LABS: ACTIVATED PTT 33.9 SECONDS (25.2-36.5)
[2023-03-26 18:42] LABS: POTASSIUM 4.7 mmol/L (3.5-5.1)
[2023-03-26 18:44] LABS: CALCIUM 9.6 mg/dL (8.5-10.1)
[2023-03-26 18:45] LABS: ALBUMIN 3.9 g/dl (3.4-5.0); BLOOD UREA NITROGEN 30.3 mg/dL (7-18); MAGNESIUM 1.9 mg/dL (1.8-2.4)
[2023-03-26 18:47] LABS: CREATININE 1.3 mg/dL (0.55-1.3); PHOSPHOROUS 4.9 mg/dL (2.5-4.9)
[2023-03-26 18:49] LABS: BILIRUBIN,TOTAL 0.3 mg/dL (0.2-1); TOT PROT 7.1 g/dl (6.4-8.2)
[2023-03-26 19:08] LABS: VENOUS PCO2 80.5 mmHg (38-52)
[2023-03-26] MEDS ORDERED: VANCOMYCIN 1,000 MG in DEXTROSE 5%-WATER - 250 ML IVPB ONE (19:15)
[2023-03-26] MEDS ORDERED: PIPERACILLIN/TAZOB 4.5 GM 4.5 GM in DEXTROSE 5%-WATER 100 ML IVPB ONE (19:15)
[2023-03-26] MEDS ORDERED: PIPERACILLIN/TAZOB 4.5 GM 4.5 GM/100 ML BAG IVPB ONE (19:35)
[2023-03-26] MEDS ORDERED: VANCOMYCIN 1 GRAM (PRE-DOCKED) 1,000 MG/250 ML BAG IVPB ONE (20:54)
[2023-03-26 22:12] LABS: VENOUS BASE EXCESS 13.4 mmol/L (-2-2); VENOUS O2 SATURATION 51.1 % (70-80); VENOUS PH 7.359 (7.310-7.410)
[2023-03-26 22:14] LABS: VENOUS PCO2 75.7 mmHg (38-52)
[2023-03-27] MEDS: APIXABAN 5 MG TABLET PO SCH ×2 (00:33→09:39)
[2023-03-27 02:22] VITALS: BMI 27.9
[2023-03-27 09:31] LABS: HEMATOCRIT 25.5 % (32.4-45.2); HEMOGLOBIN 8.5 GM/dL (10.7-15.3); MCH 26.8 pg (25.7-33.7); MCHC 33.4 g/dl (32.0-36.0); MEAN CELL VOLUME 80.1 fl (80-96); PLATELET COUNT 304 10^3/uL (134-434); RBC 3.18 M/mm3 (3.60-5.2); RDW 16.4 % (11.6-15.6); WHITE BLOOD COUNT 7.2 K/mm3 (4.0-10.0)
[2023-03-27] MEDS: TORSEMIDE 20 MG TABLET (FP) PO SCH (09:38)
[2023-03-27] MEDS: ATENOLOL 25 MG TABLET (FP) PO SCH (09:39)
[2023-03-27 10:32] LABS: BLOOD UREA NITROGEN 29.5 mg/dL (7-18); CALCIUM 9.9 mg/dL (8.5-10.1)
[2023-03-27 10:35] LABS: CREATININE 1.1 mg/dL (0.55-1.3)
[2023-03-27 12:01] LABS: POTASSIUM 4.5 mmol/L (3.5-5.1)
[2023-03-27] MEDS ORDERED: PIPERACILLIN/TAZOB 4.5 GM 4.5 GM in DEXTROSE 5%-WATER 100 ML IVPB SCH (12:30)
[2023-03-27] MEDS: morphine SULFATE 4 MG/ML VIAL IVPUSH PRN ×2 (13:15→20:10)
[2023-03-27] MEDS: CEFTRIAXONE 1 GM in DEXTROSE 5%-WATER - 50 ML IVPB SCH (16:26)
[2023-03-27] MEDS ORDERED: ATORVASTATIN CA 10 MG TABLET (FP) PO SCH (22:00)
[2023-03-28] MEDS ORDERED: METOPROLOL TARTRATE 5 MG/5 ML VIAL IVPUSH ONE (00:26)
[2023-03-28] MEDS ORDERED: PIPERACILLIN/TAZOB 4.5 GM 4.5 GM in DEXTROSE 5%-WATER 100 ML IVPB SCH (02:00)
[2023-03-28] MEDS: morphine SULFATE 4 MG/ML VIAL IVPUSH PRN ×2 (02:54→09:53)
[2023-03-28] MEDS: CEFTRIAXONE 1 GM in DEXTROSE 5%-WATER - 50 ML IVPB SCH (09:45)
[2023-03-28] MEDS ORDERED: D5-1/2NS+20 MEQ KCL - 20 MEQ/1,000 ML INFUS.BAG IV SCH (11:15)
[2023-03-28] MEDS: METOPROLOL TARTRATE 5 MG/5 ML VIAL IVPUSH PRN ×2 (14:00→16:02)
[2023-03-28] MEDS ORDERED: dilTIAZem HCL 50 MG/10 ML - 10 ML VIAL IVPUSH ONE (15:45)
[2023-03-29 08:52] VITALS: BP 104/49; PULSE 102; RESP 22; TEMP 100.3
[2023-03-29] MEDS: CEFTRIAXONE 1 GM in DEXTROSE 5%-WATER - 50 ML IVPB SCH (09:14)
[2023-03-29] MEDS: TORSEMIDE 20 MG TABLET (FP) PO SCH (09:14)
[2023-03-29] MEDS: ATENOLOL 25 MG TABLET (FP) PO SCH (09:14)
[2023-03-29] MEDS ORDERED: ACETAMINOPHEN 1000 MG/100 ML BAG IVPB PRN (09:50)
== END 2023-03-29 14:59 | disposition expired | DRG 189 ==
LOC: JER 17:44 → JERBED 21:40 → J4S 03-27 01:43
PROVIDERS: ADMIT Internal Medicine; ATTEND Internal Medicine
DX: J96.01 Acute respiratory failure with hypoxia (principal); R78.81 Bacteremia; G93.1 Anoxic brain damage, not elsewhere classified; I50.32 Chronic diastolic (congestive) heart failure; N17.9 Acute kidney failure, unspecified; J96.02 Acute respiratory failure with hypercapnia; E78.5 Hyperlipidemia, unspecified; J44.9 Chronic obstructive pulmonary disease, unspecified; I11.0 Hypertensive heart disease with heart failure; I25.10 Atherosclerotic heart disease of native coronary artery without angina pectoris; I48.91 Unspecified atrial fibrillation; R41.82 Altered mental status, unspecified; D64.9 Anemia, unspecified; G89.29 Other chronic pain; J37.0 Chronic laryngitis; K21.9 Gastro-esophageal reflux disease without esophagitis; I46.9 Cardiac arrest, cause unspecified; M54.50 Low back pain, unspecified; M54.30 Sciatica, unspecified side; E66.9 Obesity, unspecified; Z68.27 Body mass index [BMI] 27.0-27.9, adult; I25.2 Old myocardial infarction; Z99.81 Dependence on supplemental oxygen
CPT/HCPCS: 0241U-QW; 36415; 36600; 70450-TC; 71045-TC-FY; 72125-TC; 80048; 80053; 82803; 82962; 83605; 83735; 83880; 84100; 84484; 85025; 85027; 85610; 85730; 86850; 86900; 86901; 87040; 87186; 93005; 93010; 94660; 99285-25